=== PATIENT | female | born 1940 | race Caucasian/White ===

== ENCOUNTER 2018-10-20 03:45 | Inpatient (IN) ==
[2018-10-20] MEDS ORDERED: SODIUM CHLORIDE 0.9% 500 ML IV STA (04:09)
[2018-10-20] MEDS ORDERED: ONDANSETRON 4 MG/2 ML VIAL IV STA (04:09)
[2018-10-20] MEDS ORDERED: PANTOPRAZOLE 40 MG VIAL IV STA (04:09)
[2018-10-20] MEDS ORDERED: HYDROmorphone 2 MG/1 ML VIAL IV STA (04:09)
[2018-10-20 05:34] LABS: Eosinophils % 5.9 % (0.00-10.9); Hematocrit 28.4 VOL% (35.7-47.0); Hemoglobin 9.5 GM/DL (12.0-16.0); Lymphocytes # 0.1 10*3/uL (1.4-4.0); Lymphocytes % 76.5 % (21.3-54.2); Mean Corpuscular HGB Conc 33.5 GM/DL (32-36); Mean Corpuscular Hemoglobin 32 PG (27-34); Mean Corpuscular Volume 96.9 FL (87-102); Mean Platelet Volume 10.7 FL (9.6-12.0); Monocytes % 11.8 % (1.7-12.7); Neutrophils % 5.8 % (38.7-73.9); Red Blood Count 2.93 MC/CUMM (3.8-5.5); Red Cell Distribution Width 15.9 % (9.3-17.3)
[2018-10-20 05:40] LABS: White Blood Count 0.2 T/CUMM (4-12)
[2018-10-20 05:41] LABS: Platelet Count 30 T/CUMM (130-400)
[2018-10-20 05:58] LABS: Albumin 2.3 G/DL (3.4-5.0); Bilirubin,Total 2.1 MG/DL (0.2-1.0); Osmolality,Calculated 277.8 MOS/KG (273-304); Potassium 4.4 MMOL/L (3.5-5.1); Total Protein 5.2 G/DL (6.4-8.3)
[2018-10-20 06:01] LABS: Atypical Lymphocytes Few; Eosinophils 10 % (0-10); Hypochromasia 1+; Lymphocytes 60 % (20-55); Segmented Neutrophils 20 % (50-85); Total Cells Counted 100
[2018-10-20 06:02] LABS: Microcytosis 1+; Ovalocytes Slight; Platelet Estimate Decreased
[2018-10-20 06:27] LABS: Apearance,Urine CLOUDY (Clear); Bilirubin,Urine Negative (Negative); Blood, Urine Negative (Negative); Glucose,Urine (UA) Negative (Negative); Hyaline Casts,Urine 13 /LPF (0-3); Ketones,Urine Negative (Negative); Mucus,Urine Many /LPF (Occasional); Nitrite,Urine Negative (Negative); Protein,Urine Negative; Squamous Epithelial Cell,Urine Occasional /HPF (0-10); Urine Color Amber (Yellow); Urine Specific Gravity 1.021 (1.001-1.035); Urine Urobilinogen < 2.0 EU/DL (0.2-1.0); WBC,Urine 1 /HPF (0-6)
[2018-10-20] MEDS ORDERED: SODIUM CHLORIDE 0.9% 1,000 ML IV PRN (08:07)
[2018-10-20] MEDS ORDERED: chlorproMAZINE INJ 50 MG in SODIUM CHLORIDE 0.9% 100 ML IV PRN (10:34)
[2018-10-20] MEDS ORDERED: ACETAMINOPHEN 325 MG TABLET PO PRN (10:34)
[2018-10-20] MEDS ORDERED: ONDANSETRON 4 MG/2 ML VIAL IV PRN (10:34)
[2018-10-20] MEDS ORDERED: chlorproMAZINE INJ 25 MG in SODIUM CHLORIDE 0.9% 100 ML IV PRN (10:34)
[2018-10-20] MEDS ORDERED: diphenhydrAMINE CAP 25 MG CAPSULE PO PRN (10:34)
[2018-10-20] MEDS ORDERED: PROMETHAZINE INJ 25 MG in SODIUM CHLORIDE 0.9% 50 ML IV PRN (10:34)
[2018-10-20] MEDS ORDERED: LACTULOSE 20 GM/30 ML UDCUP PO PRN (10:34)
[2018-10-20] MEDS ORDERED: chlorproMAZINE 25 MG TABLET PO PRN (10:34)
[2018-10-20] MEDS ORDERED: guaiFENesin 200 MG/10 ML UDCUP PO PRN (10:34)
[2018-10-20] MEDS ORDERED: MAGNESIUM HYDROXIDE SUSP 30 ML UDCUP PO PRN (10:34)
[2018-10-20] MEDS ORDERED: LOPERAMIDE 2 MG CAPSULE PO PRN ×2 (10:34)
[2018-10-20] MEDS ORDERED: ALUMINUM/MAGNES/SIMETH MAX STR 30 ML UDCUP PO PRN (10:34)
[2018-10-20] MEDS ORDERED: BENZTROPINE 2 MG/2 ML AMP IV PRN (10:34)
[2018-10-20] MEDS ORDERED: MYLANTA/LIDO VISC 2:1 300 ML BOTTLE SWISH/SWAL PRN (10:34)
[2018-10-20] MEDS ORDERED: ALPRAZolam 0.25 MG TABLET PO PRN (10:34)
[2018-10-20] MEDS ORDERED: MYLANTA/LIDO VISC 2:1 300 ML BOTTLE SWISH/SPIT PRN (10:34)
[2018-10-20] MEDS: FILGRASTIM-SNDZ 300 MCG/0.5 ML SYRINGE SUBCUT SCH (15:10)
[2018-10-21] MEDS: PANTOPRAZOLE 40 MG VIAL IV SCH ×3 (01:47→20:49)
[2018-10-21 05:33] LABS: Eosinophils % 4.5 % (0.00-10.9); Hematocrit 25.7 VOL% (35.7-47.0); Hemoglobin 8.4 GM/DL (12.0-16.0); Lymphocytes # 0.1 10*3/uL (1.4-4.0); Lymphocytes % 59.1 % (21.3-54.2); Mean Corpuscular HGB Conc 32.7 GM/DL (32-36); Mean Corpuscular Hemoglobin 31 PG (27-34); Mean Corpuscular Volume 95.5 FL (87-102); Mean Platelet Volume 10.7 FL (9.6-12.0); Monocytes # 0.1 10*3/uL (0.11-0.8); Monocytes % 22.7 % (1.7-12.7); Neutrophils % 13.7 % (38.7-73.9); Red Blood Count 2.69 MC/CUMM (3.8-5.5); Red Cell Distribution Width 15.9 % (9.3-17.3)
[2018-10-21 05:43] LABS: Albumin 2.3 G/DL (3.4-5.0); Bilirubin,Total 1.8 MG/DL (0.2-1.0); Calcium 7.9 MG/DL (8.5-10.1); Osmolality,Calculated 276.8 MOS/KG (273-304); Potassium 4.3 MMOL/L (3.5-5.1); Total Protein 5.3 G/DL (6.4-8.3)
[2018-10-21 05:46] LABS: White Blood Count 0.2 T/CUMM (4-12)
[2018-10-21 05:47] LABS: Platelet Count 30 T/CUMM (130-400)
[2018-10-21 07:11] LABS: Lymphocytes 80 % (20-55); Segmented Neutrophils 10 % (50-85); Total Cells Counted 100
[2018-10-21 07:12] LABS: Anisocytosis Slight; Microcytosis Slight; Platelet Estimate Decreased
[2018-10-21] MEDS ORDERED: SODIUM CHLORIDE 0.9% 1,000 ML IV PRN (07:14)
[2018-10-21] MEDS: FILGRASTIM-SNDZ 300 MCG/0.5 ML SYRINGE SUBCUT SCH (08:46)
[2018-10-21] MEDS: MAGNESIUM CHLORIDE 64 MG TABLET PO SCH ×2 (08:47→20:50)
[2018-10-21] MEDS: MONTELUKAST 10 MG TABLET PO SCH (08:47)
[2018-10-21] MEDS: CHOLECALCIFEROL 1,000 UNIT TABLET PO SCH (08:47)
[2018-10-21] MEDS: URSODIOL 300 MG CAPSULE PO SCH ×2 (08:47→20:50)
[2018-10-21] MEDS: CALCIUM (CARBONATE)/VITAMIN D 600 MG-400 UNIT TABLET PO SCH (08:48)
[2018-10-21] MEDS: THYROID 60 MG TABLET PO SCH (08:48)
[2018-10-21] MEDS: amLODIPine 5 MG TABLET PO SCH (08:48)
[2018-10-21] MEDS: CARVEDILOL 6.25 MG TABLET PO SCH ×2 (08:49→20:50)
[2018-10-21 09:08] LABS: INR 1.2; PT Patient Result 13.4 SECS; Partial Thromboplastin Time 27.7 SECS (0-40)
[2018-10-22 04:42] LABS: Hematocrit 25.3 VOL% (35.7-47.0); Hemoglobin 8.4 GM/DL (12.0-16.0); Immature Granulocytes % 3.2 %; Immature Granulocytes Absolute 0.01 #; Lymphocytes # 0.1 10*3/uL (1.4-4.0); Mean Corpuscular HGB Conc 33.2 GM/DL (32-36); Mean Corpuscular Hemoglobin 32 PG (27-34); Mean Corpuscular Volume 95.5 FL (87-102); Mean Platelet Volume 10.8 FL (9.6-12.0); Monocytes # 0.1 10*3/uL (0.11-0.8); Monocytes % 32.3 % (1.7-12.7); Neutrophils # 0.1 10*3/uL (1.4-7.4); Neutrophils % 35.5 % (38.7-73.9); Red Blood Count 2.65 MC/CUMM (3.8-5.5); Red Cell Distribution Width 15.3 % (9.3-17.3)
[2018-10-22 04:49] LABS: Platelet Count 32 T/CUMM (130-400); White Blood Count 0.3 T/CUMM (4-12)
[2018-10-22 05:09] LABS: Albumin 2.4 G/DL (3.4-5.0); Bilirubin,Total 2.6 MG/DL (0.2-1.0); Calcium 7.7 MG/DL (8.5-10.1); Osmolality,Calculated 278.7 MOS/KG (273-304); Potassium 3.9 MMOL/L (3.5-5.1); Total Protein 5.2 G/DL (6.4-8.3)
[2018-10-22 05:33] LABS: Band Neutrophils 42 % (0-10); Hypochromasia Slight; Lymphocytes 17 % (20-55); Metamyelocytes 8 %; Platelet Estimate Decreased; Segmented Neutrophils 8 % (50-85); Total Cells Counted 100
[2018-10-22] MEDS ORDERED: POTASSIUM CHLORIDE RIDER 10 MEQ in PREMIX 1 EACH IV PRN (07:13)
[2018-10-22] MEDS ORDERED: MAGNESIUM SULF RIDER 2 GM in PREMIX 1 EACH IV PRN (07:13)
[2018-10-22] MEDS ORDERED: MAGNESIUM SULF RIDER 4 GM in PREMIX 1 EACH IV PRN (07:13)
[2018-10-22] MEDS ORDERED: SODIUM PHOSPHATE INJ 30 MMOL in SODIUM CHLORIDE 0.9% 250 ML IV ONE (08:00)
[2018-10-22] MEDS ORDERED: SODIUM CHLORIDE 0.9% 1,000 ML IV PRN (08:13)
[2018-10-22] MEDS ORDERED: PHENYLEPHRINE 1 MG/10 ML SYRINGE IV ONE (08:49)
[2018-10-22] MEDS ORDERED: LIDOCAINE 2% 5 ML VIAL ONE (08:49)
[2018-10-22] MEDS ORDERED: PROPOFOL 200 MG/20 ML VIAL IV ONE (08:49)
[2018-10-22] MEDS: MAGNESIUM CHLORIDE 64 MG TABLET PO SCH ×2 (09:09→20:59)
[2018-10-22] MEDS: THYROID 60 MG TABLET PO SCH (09:09)
[2018-10-22] MEDS: MONTELUKAST 10 MG TABLET PO SCH (09:09)
[2018-10-22] MEDS: CALCIUM (CARBONATE)/VITAMIN D 600 MG-400 UNIT TABLET PO SCH (09:09)
[2018-10-22] MEDS: CHOLECALCIFEROL 1,000 UNIT TABLET PO SCH (09:09)
[2018-10-22] MEDS: amLODIPine 5 MG TABLET PO SCH (09:09)
[2018-10-22] MEDS: CARVEDILOL 6.25 MG TABLET PO SCH ×2 (09:09→20:59)
[2018-10-22] MEDS: URSODIOL 300 MG CAPSULE PO SCH ×2 (09:09→20:59)
[2018-10-22] MEDS: FILGRASTIM-SNDZ 300 MCG/0.5 ML SYRINGE SUBCUT SCH (10:18)
[2018-10-22] MEDS: PANTOPRAZOLE 40 MG VIAL IV SCH ×2 (10:19→20:59)
[2018-10-23 05:51] LABS: Basophils % 1.8 % (0.0-0.8); Eosinophils % 0.9 % (0.00-10.9); Hematocrit 31.2 VOL% (35.7-47.0); Hemoglobin 10.5 GM/DL (12.0-16.0); Immature Granulocytes Absolute 0.09 #; Lymphocytes # 0.1 10*3/uL (1.4-4.0); Lymphocytes % 12.4 % (21.3-54.2); Mean Corpuscular HGB Conc 33.7 GM/DL (32-36); Mean Corpuscular Hemoglobin 32 PG (27-34); Mean Corpuscular Volume 94.8 FL (87-102); Mean Platelet Volume 11.1 FL (9.6-12.0); Monocytes # 0.3 10*3/uL (0.11-0.8); Neutrophils # 0.6 10*3/uL (1.4-7.4); Neutrophils % 53.9 % (38.7-73.9); Red Blood Count 3.29 MC/CUMM (3.8-5.5); Red Cell Distribution Width 15.4 % (9.3-17.3); White Blood Count 1.1 T/CUMM (4-12)
[2018-10-23 05:56] LABS: Platelet Count 29 T/CUMM (130-400)
[2018-10-23 06:15] LABS: Albumin 2.3 G/DL (3.4-5.0); Bilirubin,Total 2.6 MG/DL (0.2-1.0); Osmolality,Calculated 279.5 MOS/KG (273-304); Potassium 4.1 MMOL/L (3.5-5.1); Total Protein 4.9 G/DL (6.4-8.3)
[2018-10-23 06:18] LABS: Band Neutrophils 5 % (0-10); Eosinophils 1 % (0-10); Hypochromasia 1+; Lymphocytes 19 % (20-55); Ovalocytes Slight; Platelet Estimate Decreased; Segmented Neutrophils 43 % (50-85); Total Cells Counted 100
[2018-10-23 06:19] LABS: Microcytosis Slight
[2018-10-23] MEDS ORDERED: SODIUM CHLORIDE 0.9% 1,000 ML IV PRN (08:25)
[2018-10-23] MEDS: CARVEDILOL 6.25 MG TABLET PO SCH ×2 (08:37→20:21)
[2018-10-23] MEDS: MONTELUKAST 10 MG TABLET PO SCH (08:37)
[2018-10-23] MEDS: THYROID 60 MG TABLET PO SCH (08:37)
[2018-10-23] MEDS: URSODIOL 300 MG CAPSULE PO SCH ×2 (08:38→20:21)
[2018-10-23] MEDS: CALCIUM (CARBONATE)/VITAMIN D 600 MG-400 UNIT TABLET PO SCH (08:38)
[2018-10-23] MEDS: CHOLECALCIFEROL 1,000 UNIT TABLET PO SCH (08:38)
[2018-10-23] MEDS: amLODIPine 5 MG TABLET PO SCH (08:38)
[2018-10-23] MEDS: FILGRASTIM-SNDZ 300 MCG/0.5 ML SYRINGE SUBCUT SCH (08:39)
[2018-10-23] MEDS: MAGNESIUM CHLORIDE 64 MG TABLET PO SCH ×2 (08:39→20:21)
[2018-10-23] MEDS: PANTOPRAZOLE 40 MG VIAL IV SCH ×2 (11:46→20:21)
[2018-10-23] MEDS: TEMAZEPAM 7.5 MG CAPSULE PO PRN (20:24)
[2018-10-24 05:42] LABS: Basophils # 0.1 10*3/uL (0.0-0.2); Basophils % 1.8 % (0.0-0.8); Hematocrit 34.4 VOL% (35.7-47.0); Hemoglobin 11.1 GM/DL (12.0-16.0); Immature Granulocytes % 11.1 %; Lymphocytes # 0.4 10*3/uL (1.4-4.0); Lymphocytes % 15.1 % (21.3-54.2); Mean Corpuscular HGB Conc 32.3 GM/DL (32-36); Mean Corpuscular Hemoglobin 32 PG (27-34); Mean Platelet Volume 11.5 FL (9.6-12.0); Monocytes # 0.4 10*3/uL (0.11-0.8); Monocytes % 13.7 % (1.7-12.7); Neutrophils # 1.6 10*3/uL (1.4-7.4); Neutrophils % 58.3 % (38.7-73.9); Red Blood Count 3.51 MC/CUMM (3.8-5.5); Red Cell Distribution Width 15.5 % (9.3-17.3); White Blood Count 2.7 T/CUMM (4-12)
[2018-10-24 05:45] LABS: Platelet Count 44 T/CUMM (130-400)
[2018-10-24 06:14] LABS: Albumin 2.2 G/DL (3.4-5.0); Bilirubin,Total 1.3 MG/DL (0.2-1.0); Calcium 8.2 MG/DL (8.5-10.1); Osmolality,Calculated 284.1 MOS/KG (273-304); Potassium 3.5 MMOL/L (3.5-5.1); Total Protein 4.8 G/DL (6.4-8.3)
[2018-10-24 06:25] LABS: Band Neutrophils 7 % (0-10); Lymphocytes 15 % (20-55); Metamyelocytes 4 %; Myelocytes 1 %; Promyelocytes 1 %; Segmented Neutrophils 51 % (50-85)
[2018-10-24 06:26] LABS: Atypical Lymphocytes Few
[2018-10-24 06:27] LABS: Platelet Estimate Decreased
[2018-10-24 06:28] LABS: Total Cells Counted 100
[2018-10-24] MEDS: URSODIOL 300 MG CAPSULE PO SCH ×2 (08:42→20:28)
[2018-10-24] MEDS: THYROID 60 MG TABLET PO SCH (08:42)
[2018-10-24] MEDS: MONTELUKAST 10 MG TABLET PO SCH (08:42)
[2018-10-24] MEDS: CHOLECALCIFEROL 1,000 UNIT TABLET PO SCH (08:43)
[2018-10-24] MEDS: CALCIUM (CARBONATE)/VITAMIN D 600 MG-400 UNIT TABLET PO SCH (08:43)
[2018-10-24] MEDS: PANTOPRAZOLE 40 MG VIAL IV SCH ×2 (08:43→20:29)
[2018-10-24] MEDS: FILGRASTIM-SNDZ 300 MCG/0.5 ML SYRINGE SUBCUT SCH (08:44)
[2018-10-24] MEDS: MAGNESIUM CHLORIDE 64 MG TABLET PO SCH ×2 (08:47→20:28)
[2018-10-24] MEDS: amLODIPine 5 MG TABLET PO SCH (10:27)
[2018-10-24] MEDS: CARVEDILOL 6.25 MG TABLET PO SCH ×2 (10:27→20:28)
[2018-10-24] MEDS: TEMAZEPAM 7.5 MG CAPSULE PO PRN (20:28)
[2018-10-24] MEDS: traMADol 50 MG TABLET PO PRN (20:33)
[2018-10-25 05:26] LABS: Basophils % 0.2 % (0.0-0.8); Eosinophils % 0.2 % (0.00-10.9); Hematocrit 34.9 VOL% (35.7-47.0); Hemoglobin 11.5 GM/DL (12.0-16.0); Immature Granulocytes % 16.1 %; Immature Granulocytes Absolute 0.93 #; Lymphocytes # 0.4 10*3/uL (1.4-4.0); Lymphocytes % 6.6 % (21.3-54.2); Mean Corpuscular Hemoglobin 32 PG (27-34); Mean Corpuscular Volume 95.9 FL (87-102); Mean Platelet Volume 11.9 FL (9.6-12.0); Monocytes # 0.8 10*3/uL (0.11-0.8); Monocytes % 13.8 % (1.7-12.7); NRBC # 0.03 10*3/uL; Neutrophils # 3.7 10*3/uL (1.4-7.4); Neutrophils % 63.1 % (38.7-73.9); Platelet Count 47 T/CUMM (130-400); Red Blood Count 3.64 MC/CUMM (3.8-5.5); Red Cell Distribution Width 15.5 % (9.3-17.3); White Blood Count 5.8 T/CUMM (4-12)
[2018-10-25 05:40] LABS: Albumin 2.2 G/DL (3.4-5.0); Bilirubin,Total 1.2 MG/DL (0.2-1.0); Calcium 8.2 MG/DL (8.5-10.1); Osmolality,Calculated 284.1 MOS/KG (273-304); Potassium 3.6 MMOL/L (3.5-5.1); Total Protein 4.7 G/DL (6.4-8.3)
[2018-10-25 06:06] LABS: Band Neutrophils 8 % (0-10); Lymphocytes 7 % (20-55); Metamyelocytes 1 %; Myelocytes 2 %; Segmented Neutrophils 63 % (50-85)
[2018-10-25 06:07] LABS: Hypochromasia Slight; Platelet Estimate Decreased; Total Cells Counted 100
[2018-10-25] MEDS ORDERED: SPIRONOLACTONE 25 MG TABLET PO SCH (09:00)
[2018-10-25] MEDS: CALCIUM (CARBONATE)/VITAMIN D 600 MG-400 UNIT TABLET PO SCH (10:38)
[2018-10-25] MEDS: MONTELUKAST 10 MG TABLET PO SCH (10:38)
[2018-10-25] MEDS: THYROID 60 MG TABLET PO SCH (10:39)
[2018-10-25] MEDS: CHOLECALCIFEROL 1,000 UNIT TABLET PO SCH (10:39)
[2018-10-25] MEDS: PANTOPRAZOLE 40 MG VIAL IV SCH ×2 (10:40→20:38)
[2018-10-25] MEDS: URSODIOL 300 MG CAPSULE PO SCH ×2 (10:40→20:38)
[2018-10-25] MEDS: MAGNESIUM CHLORIDE 64 MG TABLET PO SCH ×2 (10:40→20:38)
[2018-10-25] MEDS: FILGRASTIM-SNDZ 300 MCG/0.5 ML SYRINGE SUBCUT SCH (10:43)
[2018-10-25] MEDS: amLODIPine 5 MG TABLET PO SCH (10:45)
[2018-10-25] MEDS: CARVEDILOL 6.25 MG TABLET PO SCH (10:45)
[2018-10-25] MEDS: FUROSEMIDE 40 MG TABLET PO SCH (16:36)
[2018-10-25] MEDS: traMADol 50 MG TABLET PO PRN (20:37)
[2018-10-25] MEDS: SPIRONOLACTONE 50 MG TABLET PO SCH (20:38)
[2018-10-26 05:27] LABS: Basophils % 0.1 % (0.0-0.8); Hematocrit 37.9 VOL% (35.7-47.0); Hemoglobin 12.1 GM/DL (12.0-16.0); Immature Granulocytes % 13.2 %; Immature Granulocytes Absolute 1.62 #; Lymphocytes # 0.5 10*3/uL (1.4-4.0); Lymphocytes % 4.3 % (21.3-54.2); Mean Corpuscular HGB Conc 31.9 GM/DL (32-36); Mean Corpuscular Hemoglobin 31 PG (27-34); Mean Corpuscular Volume 97.2 FL (87-102); Mean Platelet Volume 11.4 FL (9.6-12.0); Monocytes # 1.5 10*3/uL (0.11-0.8); NRBC # 0.02 10*3/uL; Neutrophils # 8.6 10*3/uL (1.4-7.4); Neutrophils % 70.4 % (38.7-73.9); Red Cell Distribution Width 15.9 % (9.3-17.3); White Blood Count 12.2 T/CUMM (4-12)
[2018-10-26 05:28] LABS: Platelet Count 61 T/CUMM (130-400)
[2018-10-26 05:44] LABS: Albumin 2.2 G/DL (3.4-5.0); Bilirubin,Total 1.2 MG/DL (0.2-1.0); Calcium 8.5 MG/DL (8.5-10.1); Osmolality,Calculated 282.3 MOS/KG (273-304); Potassium 3.4 MMOL/L (3.5-5.1)
[2018-10-26 06:26] LABS: Band Neutrophils 3 % (0-10); Lymphocytes 6 % (20-55); Metamyelocytes 2 %; Segmented Neutrophils 81 % (50-85); Total Cells Counted 100
[2018-10-26 06:27] LABS: Platelet Estimate Decreased
[2018-10-26 09:45] LABS: Neutrophils,Peritoneal Fluid 57 %
[2018-10-26 09:46] LABS: RBC,Peritoneal Fluid 84 T/CUMM
[2018-10-26] MEDS: CALCIUM (CARBONATE)/VITAMIN D 600 MG-400 UNIT TABLET PO SCH (10:22)
[2018-10-26] MEDS: URSODIOL 300 MG CAPSULE PO SCH ×2 (10:22→20:37)
[2018-10-26] MEDS: THYROID 60 MG TABLET PO SCH (10:22)
[2018-10-26] MEDS: SPIRONOLACTONE 50 MG TABLET PO SCH ×2 (10:22→20:37)
[2018-10-26] MEDS: amLODIPine 5 MG TABLET PO SCH (10:23)
[2018-10-26] MEDS: FUROSEMIDE 40 MG TABLET PO SCH ×2 (10:23→17:06)
[2018-10-26] MEDS: CHOLECALCIFEROL 1,000 UNIT TABLET PO SCH (10:23)
[2018-10-26] MEDS: MONTELUKAST 10 MG TABLET PO SCH (10:23)
[2018-10-26] MEDS: MAGNESIUM CHLORIDE 64 MG TABLET PO SCH ×2 (10:23→20:37)
[2018-10-26] MEDS: POTASSIUM CHLORIDE 20 MEQ TABLET PO SCH ×2 (10:24→20:37)
[2018-10-26] MEDS: PANTOPRAZOLE 40 MG VIAL IV SCH ×2 (10:26→20:37)
[2018-10-26] MEDS: traMADol 50 MG TABLET PO PRN (20:37)
[2018-10-27 04:49] LABS: Basophils % 0.1 % (0.0-0.8); Hematocrit 38.4 VOL% (35.7-47.0); Hemoglobin 12.4 GM/DL (12.0-16.0); Immature Granulocytes % 15.2 %; Lymphocytes # 0.5 10*3/uL (1.4-4.0); Lymphocytes % 5.5 % (21.3-54.2); Mean Corpuscular HGB Conc 32.3 GM/DL (32-36); Mean Corpuscular Hemoglobin 31 PG (27-34); Mean Corpuscular Volume 96.2 FL (87-102); Mean Platelet Volume 11.4 FL (9.6-12.0); Monocytes # 1.6 10*3/uL (0.11-0.8); Monocytes % 15.8 % (1.7-12.7); Neutrophils # 6.2 10*3/uL (1.4-7.4); Neutrophils % 63.4 % (38.7-73.9); Red Blood Count 3.99 MC/CUMM (3.8-5.5); Red Cell Distribution Width 15.8 % (9.3-17.3); White Blood Count 9.8 T/CUMM (4-12)
[2018-10-27 05:00] LABS: Platelet Count 57 T/CUMM (130-400)
[2018-10-27 05:08] LABS: Albumin 2.2 G/DL (3.4-5.0); Bilirubin,Total 1.2 MG/DL (0.2-1.0); Calcium 8.1 MG/DL (8.5-10.1); Osmolality,Calculated 281.3 MOS/KG (273-304); Potassium 3.3 MMOL/L (3.5-5.1); Total Protein 4.9 G/DL (6.4-8.3)
[2018-10-27 06:05] LABS: Band Neutrophils 4 % (0-10); Lymphocytes 11 % (20-55); Metamyelocytes 1 %; Platelet Estimate Decreased; Segmented Neutrophils 67 % (50-85)
[2018-10-27 06:06] LABS: Total Cells Counted 100
[2018-10-27 08:13] VITALS: BP 125/74
[2018-10-27] MEDS: CHOLECALCIFEROL 1,000 UNIT TABLET PO SCH (08:35)
[2018-10-27] MEDS: MONTELUKAST 10 MG TABLET PO SCH (08:36)
[2018-10-27] MEDS: MAGNESIUM CHLORIDE 64 MG TABLET PO SCH (08:36)
[2018-10-27] MEDS: THYROID 60 MG TABLET PO SCH (08:36)
[2018-10-27] MEDS: PANTOPRAZOLE 40 MG VIAL IV SCH (08:37)
[2018-10-27] MEDS: CALCIUM (CARBONATE)/VITAMIN D 600 MG-400 UNIT TABLET PO SCH (08:37)
[2018-10-27] MEDS: amLODIPine 5 MG TABLET PO SCH (08:37)
[2018-10-27] MEDS: SPIRONOLACTONE 50 MG TABLET PO SCH (08:37)
[2018-10-27] MEDS: POTASSIUM CHLORIDE 20 MEQ TABLET PO SCH (08:37)
[2018-10-27] MEDS: POTASSIUM CHLORIDE RIDER 10 MEQ in PREMIX 1 EACH IV SCH ×2 (08:40→10:45)
[2018-10-27] MEDS ORDERED: FUROSEMIDE 40 MG TABLET PO SCH (09:00)
[2018-10-27] MEDS ORDERED: POTASSIUM CHLORIDE 20 MEQ TABLET PO ONE (09:10)
[2018-10-27] MEDS: URSODIOL 300 MG CAPSULE PO SCH (09:50)
== END 2018-10-27 11:10 | disposition home or self-care (01) | DRG 808 ==
LOC: N.EDINP 03:45 → N.ED 03:45 → SUATTDRO 06:29 → SUPCPDRO 06:29 → N.4E 07:49 → SUATTDRO 10-21 09:40
PROVIDERS: ADMIT Family Medicine; ATTEND Internal Medicine Geriatric Medicine

== ENCOUNTER 2019-01-26 12:13 | Inpatient (IN) ==
[2019-01-26] MEDS ORDERED: SODIUM CHLORIDE 0.9% 1,000 ML IV STA (12:43)
[2019-01-26] MEDS ORDERED: ONDANSETRON 4 MG/2 ML VIAL IV STA (12:43)
[2019-01-26] MEDS ORDERED: HYDROmorphone 2 MG/1 ML VIAL IV STA (12:43)
[2019-01-26 13:23] LABS: Basophils % 0.8 % (0.0-0.8); Eosinophils % 1.5 % (0.00-10.9); Hematocrit 23.1 VOL% (35.7-47.0); Hemoglobin 7.6 GM/DL (12.0-16.0); Immature Granulocytes % 3.8 %; Immature Granulocytes Absolute 0.05 #; Lymphocytes # 0.2 10*3/uL (1.4-4.0); Lymphocytes % 16.9 % (21.3-54.2); Mean Corpuscular HGB Conc 32.9 GM/DL (32-36); Mean Corpuscular Volume 106.9 FL (87-102); Mean Platelet Volume 13.1 FL (9.6-12.0); Monocytes % 26.2 % (1.7-12.7); Neutrophils % 50.8 % (38.7-73.9); Red Blood Count 2.16 MC/CUMM (3.8-5.5); Red Cell Distribution Width 14.5 % (9.3-17.3); White Blood Count 1.3 T/CUMM (4-12)
[2019-01-26 13:27] LABS: Platelet Count 20 T/CUMM (130-400)
[2019-01-26 13:51] LABS: Albumin 2.8 G/DL (3.4-5.0); Bilirubin,Total 1.3 MG/DL (0.2-1.0); Calcium 8.6 MG/DL (8.5-10.1); Total Protein 5.6 G/DL (6.4-8.3)
[2019-01-26] MEDS ORDERED: SODIUM CHLORIDE 0.9% 1,000 ML IV PRN (14:40)
[2019-01-26 15:23] LABS: Band Neutrophils 4 % (0-10); Eosinophils 2 % (0-10); Lymphocytes 28 % (20-55); Nucleated Red Blood Cells 1 (0-5); Platelet Estimate Decreased; Segmented Neutrophils 54 % (50-85)
[2019-01-26 15:24] LABS: Anisocytosis Slight; Total Cells Counted 100
[2019-01-26 15:25] LABS: Hypochromasia Slight; Macrocytosis 1+; Polychromasia Few; Toxic Granulation 1+
[2019-01-26] MEDS ORDERED: ONDANSETRON 4 MG/2 ML VIAL IV PRN (15:28)
[2019-01-26] MEDS ORDERED: ACETAMINOPHEN 325 MG TABLET PO PRN (15:28)
[2019-01-26 16:17] LABS: Thyroid Stimulating Hormone 1.58 uIU/ml (0.358-3.74)
[2019-01-27 05:04] LABS: Basophils % 1.4 % (0.0-0.8); Eosinophils % 1.4 % (0.00-10.9); Hematocrit 28.1 VOL% (35.7-47.0); Hemoglobin 9.5 GM/DL (12.0-16.0); Immature Granulocytes % 2.9 %; Immature Granulocytes Absolute 0.02 #; Lymphocytes # 0.2 10*3/uL (1.4-4.0); Lymphocytes % 22.9 % (21.3-54.2); Mean Corpuscular HGB Conc 33.8 GM/DL (32-36); Mean Corpuscular Volume 101.4 FL (87-102); Mean Platelet Volume 11.5 FL (9.6-12.0); Neutrophils % 41.4 % (38.7-73.9); Red Blood Count 2.77 MC/CUMM (3.8-5.5); Red Cell Distribution Width 16.9 % (9.3-17.3)
[2019-01-27 05:09] LABS: White Blood Count 0.7 T/CUMM (4-12)
[2019-01-27 05:10] LABS: Platelet Count 18 T/CUMM (130-400)
[2019-01-27 05:32] LABS: Albumin 2.5 G/DL (3.4-5.0); Bilirubin,Total 1.4 MG/DL (0.2-1.0); Calcium 8.2 MG/DL (8.5-10.1); Osmolality,Calculated 272.8 MOS/KG (273-304)
[2019-01-27 06:38] LABS: Anisocytosis 1+; Band Neutrophils 4 % (0-10); Lymphocytes 23 % (20-55); Macrocytosis Slight; Metamyelocytes 1 %; Myelocytes 2 %; Segmented Neutrophils 53 % (50-85); Total Cells Counted 100
[2019-01-27 06:40] LABS: Platelet Estimate Decreased
[2019-01-27] MEDS: PANTOPRAZOLE 40 MG TABLET PO SCH (09:40)
[2019-01-27] MEDS: MAGNESIUM CHLORIDE 64 MG TABLET PO SCH (09:40)
[2019-01-27] MEDS: URSODIOL 300 MG CAPSULE PO SCH ×2 (09:40→20:47)
[2019-01-27] MEDS: CHOLECALCIFEROL 1,000 UNIT TABLET PO SCH (09:40)
[2019-01-27] MEDS: FILGRASTIM-SNDZ 300 MCG/0.5 ML SYRINGE SUBCUT SCH (09:41)
[2019-01-27] MEDS: CARVEDILOL 6.25 MG TABLET PO SCH (09:42)
[2019-01-27] MEDS: SPIRONOLACTONE 50 MG TABLET PO SCH (09:42)
[2019-01-27] MEDS: FUROSEMIDE 20 MG TABLET PO SCH (09:42)
[2019-01-27] MEDS: amLODIPine 5 MG TABLET PO SCH (09:42)
[2019-01-27] MEDS ORDERED: SODIUM CHLORIDE 0.9% 1,000 ML IV PRN ×3 (10:32→15:10)
[2019-01-27] MEDS ORDERED: MAGNESIUM SULF RIDER 4 GM in PREMIX 1 EACH IV PRN (13:17)
[2019-01-27] MEDS ORDERED: POTASSIUM CHLORIDE 20 MEQ TABLET PO PRN (13:17)
[2019-01-27] MEDS: MAGNESIUM SULF RIDER 2 GM in PREMIX 1 EACH IV PRN ×2 (16:13→18:11)
[2019-01-27] MEDS ORDERED: BACLOFEN 10 MG TABLET PO PRN (16:36)
[2019-01-27] MEDS ORDERED: URSODIOL 300 MG CAPSULE PO SCH (21:00)
[2019-01-28 04:43] LABS: Basophils % 1.1 % (0.0-0.8); Eosinophils % 0.4 % (0.00-10.9); Hematocrit 29.2 VOL% (35.7-47.0); Hemoglobin 9.8 GM/DL (12.0-16.0); Immature Granulocytes Absolute 0.24 #; Lymphocytes # 0.2 10*3/uL (1.4-4.0); Lymphocytes % 8.2 % (21.3-54.2); Mean Corpuscular HGB Conc 33.6 GM/DL (32-36); Mean Platelet Volume 11.9 FL (9.6-12.0); Monocytes % 20.2 % (1.7-12.7); Neutrophils % 61.1 % (38.7-73.9); Red Blood Count 2.92 MC/CUMM (3.8-5.5); Red Cell Distribution Width 16.6 % (9.3-17.3); White Blood Count 2.7 T/CUMM (4-12)
[2019-01-28 04:50] LABS: Albumin 2.8 G/DL (3.4-5.0); Bilirubin,Total 1.9 MG/DL (0.2-1.0); Calcium 8.3 MG/DL (8.5-10.1); Osmolality,Calculated 272.8 MOS/KG (273-304); Platelet Count 28 T/CUMM (130-400); Total Protein 5.3 G/DL (6.4-8.3)
[2019-01-28 05:13] LABS: Anisocytosis 2+; Band Neutrophils 13 % (0-10); Hypochromasia 1+; Lymphocytes 6 % (20-55); Macrocytosis 2+; Metamyelocytes 3 %; Myelocytes 1 %; Nucleated Red Blood Cells 1 (0-5); Platelet Estimate Decreased; Segmented Neutrophils 62 % (50-85); Total Cells Counted 100
[2019-01-28] MEDS: THYROID 60 MG TABLET PO SCH (06:06)
[2019-01-28] MEDS ORDERED: ACETAMINOPHEN 325 MG TABLET PO PRN (08:21)
[2019-01-28] MEDS ORDERED: THYROID 60 MG TABLET PO SCH (09:00)
[2019-01-28] MEDS ORDERED: SPIRONOLACTONE 50 MG TABLET PO SCH (09:00)
[2019-01-28] MEDS: CHOLECALCIFEROL 1,000 UNIT TABLET PO SCH (09:38)
[2019-01-28] MEDS: MAGNESIUM CHLORIDE 64 MG TABLET PO SCH (09:38)
[2019-01-28] MEDS: FILGRASTIM-SNDZ 300 MCG/0.5 ML SYRINGE SUBCUT SCH (09:38)
[2019-01-28] MEDS: URSODIOL 300 MG CAPSULE PO SCH ×2 (09:39→20:45)
[2019-01-28] MEDS: MONTELUKAST 10 MG TABLET PO SCH (09:39)
[2019-01-28] MEDS: PANTOPRAZOLE 40 MG TABLET PO SCH (09:40)
[2019-01-28] MEDS: FUROSEMIDE 20 MG TABLET PO SCH (09:40)
[2019-01-28] MEDS: SPIRONOLACTONE 50 MG TABLET PO SCH (09:40)
[2019-01-28] MEDS: amLODIPine 5 MG TABLET PO SCH (09:40)
[2019-01-28] MEDS: CARVEDILOL 6.25 MG TABLET PO SCH (09:40)
[2019-01-28] MEDS ORDERED: LOPERAMIDE 2 MG CAPSULE PO PRN ×2 (15:56)
[2019-01-28] MEDS ORDERED: ALPRAZolam 0.25 MG TABLET PO PRN (15:56)
[2019-01-28] MEDS ORDERED: guaiFENesin 200 MG/10 ML UDCUP PO PRN (15:56)
[2019-01-28] MEDS ORDERED: diphenhydrAMINE CAP 25 MG CAPSULE PO PRN (15:56)
[2019-01-28] MEDS ORDERED: TEMAZEPAM 7.5 MG CAPSULE PO PRN (15:56)
[2019-01-28] MEDS ORDERED: traMADol 50 MG TABLET PO PRN (15:56)
[2019-01-28] MEDS ORDERED: PROMETHAZINE INJ 25 MG in SODIUM CHLORIDE 0.9% 50 ML IV PRN (15:56)
[2019-01-28] MEDS ORDERED: MAGNESIUM HYDROXIDE SUSP 30 ML UDCUP PO PRN (15:56)
[2019-01-28] MEDS ORDERED: MYLANTA/LIDO VISC 2:1 300 ML BOTTLE SWISH/SPIT PRN (15:56)
[2019-01-28] MEDS ORDERED: ALUMINUM/MAGNES/SIMETH MAX STR 30 ML UDCUP PO PRN (15:56)
[2019-01-28] MEDS ORDERED: LACTULOSE 20 GM/30 ML UDCUP PO PRN (15:56)
[2019-01-28] MEDS ORDERED: MYLANTA/LIDO VISC 2:1 300 ML BOTTLE SWISH/SWAL PRN (15:56)
[2019-01-29] MEDS: THYROID 60 MG TABLET PO SCH (06:17)
[2019-01-29 06:50] LABS: Basophils # 0.1 10*3/uL (0.0-0.2); Basophils % 1.4 % (0.0-0.8); Eosinophils % 0.5 % (0.00-10.9); Hematocrit 29.7 VOL% (35.7-47.0); Hemoglobin 9.7 GM/DL (12.0-16.0); Immature Granulocytes % 6.6 %; Immature Granulocytes Absolute 0.28 #; Lymphocytes # 0.3 10*3/uL (1.4-4.0); Lymphocytes % 6.9 % (21.3-54.2); Mean Corpuscular HGB Conc 32.7 GM/DL (32-36); Mean Corpuscular Volume 104.2 FL (87-102); Mean Platelet Volume 11.6 FL (9.6-12.0); Monocytes % 19.4 % (1.7-12.7); Neutrophils % 65.2 % (38.7-73.9); Red Blood Count 2.85 MC/CUMM (3.8-5.5); Red Cell Distribution Width 16.7 % (9.3-17.3); White Blood Count 4.2 T/CUMM (4-12)
[2019-01-29 07:09] LABS: Albumin 2.4 G/DL (3.4-5.0); Calcium 8.3 MG/DL (8.5-10.1); Osmolality,Calculated 272.7 MOS/KG (273-304); Total Protein 4.9 G/DL (6.4-8.3)
[2019-01-29 07:14] LABS: Platelet Count 37 T/CUMM (130-400)
[2019-01-29 07:35] LABS: Band Neutrophils 5 % (0-10); Eosinophils 1 % (0-10); Hypochromasia Slight; Lymphocytes 5 % (20-55); Macrocytosis 1+; Platelet Estimate Decreased; Segmented Neutrophils 75 % (50-85); Total Cells Counted 100
[2019-01-29] MEDS: CARVEDILOL 6.25 MG TABLET PO SCH (08:12)
[2019-01-29] MEDS: SPIRONOLACTONE 50 MG TABLET PO SCH (08:12)
[2019-01-29] MEDS: FUROSEMIDE 20 MG TABLET PO SCH (08:13)
[2019-01-29] MEDS: amLODIPine 5 MG TABLET PO SCH (08:13)
[2019-01-29] MEDS: MONTELUKAST 10 MG TABLET PO SCH (08:23)
[2019-01-29] MEDS: PANTOPRAZOLE 40 MG TABLET PO SCH (08:23)
[2019-01-29] MEDS: URSODIOL 300 MG CAPSULE PO SCH ×2 (08:23→21:15)
[2019-01-29] MEDS: FILGRASTIM-SNDZ 300 MCG/0.5 ML SYRINGE SUBCUT SCH (08:23)
[2019-01-29] MEDS: MAGNESIUM CHLORIDE 64 MG TABLET PO SCH (08:23)
[2019-01-29] MEDS: CHOLECALCIFEROL 1,000 UNIT TABLET PO SCH (08:23)
[2019-01-30 06:15] LABS: Basophils # 0.1 10*3/uL (0.0-0.2); Basophils % 1.5 % (0.0-0.8); Eosinophils % 0.6 % (0.00-10.9); Hemoglobin 9.9 GM/DL (12.0-16.0); Immature Granulocytes Absolute 0.32 #; Lymphocytes # 0.4 10*3/uL (1.4-4.0); Lymphocytes % 7.1 % (21.3-54.2); Mean Corpuscular HGB Conc 34.1 GM/DL (32-36); Mean Corpuscular Volume 102.1 FL (87-102); Monocytes % 18.3 % (1.7-12.7); Neutrophils % 66.5 % (38.7-73.9); Red Blood Count 2.84 MC/CUMM (3.8-5.5); Red Cell Distribution Width 16.5 % (9.3-17.3); White Blood Count 5.4 T/CUMM (4-12)
[2019-01-30 06:36] LABS: Platelet Count 37 T/CUMM (130-400)
[2019-01-30 06:45] LABS: Albumin 2.6 G/DL (3.4-5.0); Bilirubin,Total 1.2 MG/DL (0.2-1.0); Calcium 8.3 MG/DL (8.5-10.1); Osmolality,Calculated 277.4 MOS/KG (273-304); Total Protein 4.8 G/DL (6.4-8.3)
[2019-01-30] MEDS: THYROID 60 MG TABLET PO SCH (06:50)
[2019-01-30 07:42] LABS: Band Neutrophils 9 % (0-10); Eosinophils 4 % (0-10); Lymphocytes 9 % (20-55); Metamyelocytes 2 %; Nucleated Red Blood Cells 1 (0-5); Segmented Neutrophils 65 % (50-85); Total Cells Counted 100
[2019-01-30 07:43] LABS: Anisocytosis 2+; Macrocytosis 2+; Platelet Estimate Decreased
[2019-01-30] MEDS: amLODIPine 5 MG TABLET PO SCH (09:41)
[2019-01-30] MEDS: SPIRONOLACTONE 50 MG TABLET PO SCH (09:41)
[2019-01-30] MEDS: FUROSEMIDE 20 MG TABLET PO SCH (09:41)
[2019-01-30] MEDS: CARVEDILOL 6.25 MG TABLET PO SCH (09:41)
[2019-01-30] MEDS: CHOLECALCIFEROL 1,000 UNIT TABLET PO SCH (09:45)
[2019-01-30] MEDS: PANTOPRAZOLE 40 MG TABLET PO SCH (09:45)
[2019-01-30] MEDS: MAGNESIUM CHLORIDE 64 MG TABLET PO SCH (09:45)
[2019-01-30] MEDS: URSODIOL 300 MG CAPSULE PO SCH ×2 (09:45→20:54)
[2019-01-30] MEDS: MONTELUKAST 10 MG TABLET PO SCH (09:45)
[2019-01-30] MEDS: FILGRASTIM-SNDZ 300 MCG/0.5 ML SYRINGE SUBCUT SCH (09:45)
[2019-01-31 04:09] LABS: Basophils # 0.1 10*3/uL (0.0-0.2); Basophils % 1.2 % (0.0-0.8); Eosinophils % 0.3 % (0.00-10.9); Hematocrit 29.2 VOL% (35.7-47.0); Hemoglobin 9.8 GM/DL (12.0-16.0); Immature Granulocytes % 4.9 %; Immature Granulocytes Absolute 0.29 #; Lymphocytes # 0.4 10*3/uL (1.4-4.0); Lymphocytes % 7.3 % (21.3-54.2); Mean Corpuscular HGB Conc 33.6 GM/DL (32-36); Mean Corpuscular Volume 102.8 FL (87-102); Mean Platelet Volume 11.8 FL (9.6-12.0); Monocytes % 17.2 % (1.7-12.7); Neutrophils % 69.1 % (38.7-73.9); Red Blood Count 2.84 MC/CUMM (3.8-5.5); Red Cell Distribution Width 16.5 % (9.3-17.3); White Blood Count 5.9 T/CUMM (4-12)
[2019-01-31 04:13] LABS: Calcium 8.3 MG/DL (8.5-10.1); Osmolality,Calculated 273.7 MOS/KG (273-304)
[2019-01-31 04:47] LABS: Platelet Count 39 T/CUMM (130-400)
[2019-01-31 05:18] LABS: Band Neutrophils 3 % (0-10); Eosinophils 1 % (0-10); Lymphocytes 9 % (20-55); Metamyelocytes 2 %; Ovalocytes Few; Platelet Estimate Decreased; Segmented Neutrophils 68 % (50-85); Total Cells Counted 100
[2019-01-31] MEDS ORDERED: SODIUM CHLORIDE 0.9% 1,000 ML IV PRN ×2 (06:34→07:35)
[2019-01-31] MEDS ORDERED: LIDOCAINE 1% 5 ML VIAL ONE (09:00)
[2019-01-31] MEDS ORDERED: PROPOFOL 200 MG/20 ML VIAL IV ONE (09:00)
[2019-01-31] MEDS: THYROID 60 MG TABLET PO SCH (10:51)
[2019-01-31] MEDS: FILGRASTIM-SNDZ 300 MCG/0.5 ML SYRINGE SUBCUT SCH (10:57)
[2019-01-31] MEDS: URSODIOL 300 MG CAPSULE PO SCH (14:43)
[2019-01-31] MEDS: FUROSEMIDE 20 MG TABLET PO SCH (14:43)
[2019-01-31] MEDS: CARVEDILOL 6.25 MG TABLET PO SCH (14:43)
[2019-01-31] MEDS: SPIRONOLACTONE 50 MG TABLET PO SCH (14:43)
[2019-01-31] MEDS: CHOLECALCIFEROL 1,000 UNIT TABLET PO SCH (14:44)
[2019-01-31] MEDS: PANTOPRAZOLE 40 MG TABLET PO SCH (14:44)
[2019-01-31] MEDS: amLODIPine 5 MG TABLET PO SCH (14:44)
[2019-01-31] MEDS: MAGNESIUM CHLORIDE 64 MG TABLET PO SCH (14:44)
[2019-01-31] MEDS: MONTELUKAST 10 MG TABLET PO SCH (14:44)
[2019-01-31 18:01] VITALS: BP 102/63
== END 2019-01-31 18:10 | disposition home or self-care (01) | DRG 808 ==
LOC: N.ED 12:13 → N.EDINP 12:13 → N.4E 16:51 → SUATTDRO 01-27 13:10
PROVIDERS: ADMIT Internal Medicine; ATTEND Internal Medicine

== ENCOUNTER 2019-04-08 08:59 | Inpatient (IN) ==
[2019-04-08] MEDS ORDERED: PANTOPRAZOLE 40 MG VIAL IV STA (09:58)
[2019-04-08] MEDS ORDERED: MEROPENEM 1,000 MG in SODIUM CHLORIDE 0.9% 100 ML IV STA (09:58)
[2019-04-08] MEDS ORDERED: SODIUM CHLORIDE 0.9% 1,000 ML IV STA ×2 (09:58→12:38)
[2019-04-08] MEDS ORDERED: metroNIDAZOLE INJ 500 MG in PREMIX 1 EACH IV STA (09:58)
[2019-04-08] MEDS ORDERED: ONDANSETRON 4 MG/2 ML VIAL IV STA (09:58)
[2019-04-08] MEDS ORDERED: MEROPENEM 1,000 MG VIAL IV ONE (10:17)
[2019-04-08 10:55] LABS: Basophils % 0.3 % (0.0-0.8); Hematocrit 32.2 VOL% (35.7-47.0); Immature Granulocytes % 8.4 %; Immature Granulocytes Absolute 0.63 #; Lymphocytes # 0.2 10*3/uL (1.4-4.0); Lymphocytes % 2.5 % (21.3-54.2); Mean Corpuscular HGB Conc 34.2 GM/DL (32-36); Mean Corpuscular Volume 106.3 FL (87-102); Mean Platelet Volume 11.2 FL (9.6-12.0); Monocytes % 10.2 % (1.7-12.7); Neutrophils % 78.6 % (38.7-73.9); Red Blood Count 3.03 MC/CUMM (3.8-5.5); Red Cell Distribution Width 14.6 % (9.3-17.3); White Blood Count 7.5 T/CUMM (4-12)
[2019-04-08 10:59] LABS: Platelet Count 22 T/CUMM (130-400)
[2019-04-08 11:01] LABS: Apearance,Urine CLEAR (Clear); Bilirubin,Urine Small mg/dL (Negative); Blood, Urine Negative (Negative); Glucose,Urine (UA) 50 mg/dL (Negative); Hyaline Casts,Urine 113 /LPF (0-3); INR 1.7; Ketones,Urine 5 mg/dL (Negative); Mucus,Urine Occasional /LPF (Occasional); Nitrite,Urine Negative (Negative); PT Patient Result 18.3 SECS (9.6-12.2); Protein,Urine 30 MG/DL; RBC,Urine <1 /HPF (0-4); Squamous Epithelial Cell,Urine Occasional /HPF (0-10); Urine Color Amber (Yellow); Urine Specific Gravity 1.024 (1.001-1.035); WBC,Urine <1 /HPF (0-6)
[2019-04-08 11:02] LABS: Partial Thromboplastin Time 42.7 SECS (20.8-36.0)
[2019-04-08 11:15] LABS: Alanine Aminotransferase 14 U/L (13-56); Albumin 2.4 G/DL (3.4-5.0); Alkaline Phosphatase 87 U/L (45-117); Amylase 12 U/L (25-115); Aspartate Amino Transferase 22 U/L (0-37); Blood Urea Nitrogen 35 MG/DL (7-18); Calcium 8.6 MG/DL (8.5-10.1); Estimated Glom Filtration Rate 28 ML/MIN; Glucose 196 MG/DL (74-106); Osmolality,Calculated 276.5 MOS/KG (273-304); Total Protein 5.3 G/DL (6.4-8.3); Troponin I < 0.015 NG/ML (0.00-0.045)
[2019-04-08 11:16] LABS: Band Neutrophils 9 % (0-10); Hypochromasia 1+; Lymphocytes 5 % (20-55); Metamyelocytes 2 %; Segmented Neutrophils 75 % (50-85); Total Cells Counted 100
[2019-04-08 11:17] LABS: Macrocytosis 1+; Platelet Estimate Decreased; Polychromasia Slight
[2019-04-08] MEDS ORDERED: ceFAZolin 1,000 MG in SYRINGE 1 EACH IV ONE (12:04)
[2019-04-08] MEDS ORDERED: LIDOCAINE 1% 20 ML VIAL ONE (12:28)
[2019-04-08] MEDS ORDERED: BUPIVACAINE 0.25% /EPI 10 ML VIAL ONE (12:28)
[2019-04-08] MEDS ORDERED: fentaNYL 100 MCG/2 ML VIAL ONE (15:36)
[2019-04-08] MEDS ORDERED: DESFLURANE 1 UNIT/15 MINUTE INH ONE (15:36)
[2019-04-08] MEDS ORDERED: LIDOCAINE 100 MG/5 ML SYRINGE ONE (15:36)
[2019-04-08] MEDS ORDERED: PROPOFOL 200 MG/20 ML VIAL IV ONE (15:36)
[2019-04-08] MEDS ORDERED: MIDAZOLAM 2 MG/2 ML VIAL ONE (15:36)
[2019-04-08] MEDS ORDERED: SUCCINYLCHOLINE 200 MG/10 ML VIAL ONE (15:37)
[2019-04-08] MEDS ORDERED: ROCURONIUM 100 MG/10 ML VIAL IV ONE (15:37)
[2019-04-08] MEDS ORDERED: SODIUM CHLORIDE 0.9% 1,000 ML IV ONE (15:37)
[2019-04-08] MEDS ORDERED: GLYCOPYRROLATE 0.4 MG/2 ML VIAL ONE (15:37)
[2019-04-08] MEDS ORDERED: NEOSTIGMINE 10 MG/10 ML VIAL ONE (15:37)
[2019-04-08] MEDS ORDERED: PHENYLEPHRINE 1 MG/10 ML SYRINGE IV ONE (15:37)
[2019-04-08] MEDS ORDERED: PHENYLEPHRINE DRIP 20 MG/250 ML PREMIX IV ONE (15:37)
[2019-04-08 15:49] LABS: Apearance,Urine Clear (Clear); Glucose,Urine (UA) Negative (Negative); Ketones,Urine Negative (Negative); Nitrite,Urine Negative (Negative); Protein,Urine Negative; Urine Color Amber (Yellow); Urine Specific Gravity 1.024 (1.001-1.035)
[2019-04-08 15:50] LABS: Bacteria,Urine Occasional /HPF (Few); Bilirubin,Urine Negative (Negative); Blood, Urine Negative (Negative); Hyaline Casts,Urine 79 /LPF (0-3); Squamous Epithelial Cell,Urine Occasional /HPF (0-10)
[2019-04-08 15:51] LABS: Mucus,Urine Few /LPF (Occasional)
[2019-04-08] MEDS ORDERED: ALBUMIN 5% 12.5 GM in PREMIX 1 EACH IV ONE (16:08)
[2019-04-08] MEDS ORDERED: ALBUMIN 5% 12.5 GM/250 ML VIAL IV ONE (16:09)
[2019-04-08] MEDS ORDERED: ACETAMINOPHEN 325 MG TABLET PO PRN (17:25)
[2019-04-08] MEDS: LACTATED RINGERS 1,000 ML IV SCH (17:25)
[2019-04-08] MEDS ORDERED: BISACODYL 5 MG TABLET PO PRN (17:25)
[2019-04-08 18:14] LABS: Hematocrit 23.1 VOL% (35.7-47.0); Red Blood Count 2.12 MC/CUMM (3.8-5.5); White Blood Count 4.1 T/CUMM (4-12)
[2019-04-08 18:15] LABS: Hemoglobin 7.5 GM/DL (12.0-16.0); Lymphocytes % 4.2 % (21.3-54.2); Mean Corpuscular HGB Conc 32.5 GM/DL (32-36); Mean Platelet Volume 10.7 FL (9.6-12.0); Monocytes % 12.5 % (1.7-12.7); Neutrophils % 71.1 % (38.7-73.9); Red Cell Distribution Width 14.9 % (9.3-17.3)
[2019-04-08 18:16] LABS: Basophils % 0.2 % (0.0-0.8); Immature Granulocytes Absolute 0.49 #; Lymphocytes # 0.2 10*3/uL (1.4-4.0)
[2019-04-08 18:17] LABS: Platelet Count 32 T/CUMM (130-400)
[2019-04-08 18:18] LABS: Calcium 8.3 MG/DL (8.5-10.1); Osmolality,Calculated 281.1 MOS/KG (273-304)
[2019-04-08 18:53] LABS: Anisocytosis 1+; Band Neutrophils 3 % (0-10); Lymphocytes 9 % (20-55); Segmented Neutrophils 75 % (50-85); Total Cells Counted 100
[2019-04-08 18:54] LABS: Elliptocytes 1+; Hypochromasia 1+; Platelet Estimate Decreased; Polychromasia Few
[2019-04-08] MEDS ORDERED: LACTATED RINGERS 500 ML IV ONE (19:31)
[2019-04-08] MEDS: PANTOPRAZOLE 40 MG TABLET PO SCH (21:25)
[2019-04-08] MEDS ORDERED: SODIUM CHLORIDE 0.9% 1,000 ML IV PRN (22:34)
[2019-04-09] MEDS ORDERED: NOREPINEPHRINE 8 MG in SODIUM CHLORIDE 0.9% 242 ML IV PRN (01:09)
[2019-04-09] MEDS ORDERED: LACTATED RINGERS 1,000 ML IV ONE (01:09)
[2019-04-09 01:41] LABS: Hematocrit 21.9 VOL% (35.7-47.0); Hemoglobin 7.4 GM/DL (12.0-16.0); Immature Granulocytes % 6.9 %; Immature Granulocytes Absolute 0.27 #; Lymphocytes # 0.3 10*3/uL (1.4-4.0); Lymphocytes % 7.6 % (21.3-54.2); Mean Corpuscular HGB Conc 33.8 GM/DL (32-36); Mean Corpuscular Volume 104.3 FL (87-102); Mean Platelet Volume 11.9 FL (9.6-12.0); Monocytes % 7.4 % (1.7-12.7); Neutrophils % 78.1 % (38.7-73.9); Platelet Count 49 T/CUMM (130-400); Red Cell Distribution Width 15.9 % (9.3-17.3); White Blood Count 3.9 T/CUMM (4-12)
[2019-04-09] MEDS ORDERED: SODIUM CHLORIDE 0.9% 1,000 ML IV PRN ×5 (01:43→20:05)
[2019-04-09 02:09] LABS: Band Neutrophils 8 % (0-10); Lymphocytes 4 % (20-55); Segmented Neutrophils 82 % (50-85); Total Cells Counted 100
[2019-04-09 02:10] LABS: Anisocytosis 1+; Ovalocytes 1+; Platelet Estimate Decreased
[2019-04-09] MEDS: LACTATED RINGERS 1,000 ML IV SCH ×4 (02:10→20:10)
[2019-04-09 02:43] LABS: INR 1.6; Partial Thromboplastin Time 39.1 SECS (20.8-36.0)
[2019-04-09] MEDS ORDERED: PROTHROMBIN COMPLEX IV ONE (03:00)
[2019-04-09 06:55] LABS: Basophils % 0.3 % (0.0-0.8); Hematocrit 20.2 VOL% (35.7-47.0); Hemoglobin 6.7 GM/DL (12.0-16.0); Immature Granulocytes % 9.2 %; Immature Granulocytes Absolute 0.29 #; Lymphocytes # 0.2 10*3/uL (1.4-4.0); Lymphocytes % 6.1 % (21.3-54.2); Mean Corpuscular HGB Conc 33.2 GM/DL (32-36); Mean Corpuscular Volume 104.7 FL (87-102); Mean Platelet Volume 11.4 FL (9.6-12.0); Monocytes % 13.7 % (1.7-12.7); Neutrophils % 70.7 % (38.7-73.9); Red Blood Count 1.93 MC/CUMM (3.8-5.5); Red Cell Distribution Width 16.1 % (9.3-17.3); White Blood Count 3.1 T/CUMM (4-12)
[2019-04-09 06:58] LABS: Platelet Count 29 T/CUMM (130-400)
[2019-04-09 07:08] LABS: Band Neutrophils 6 % (0-10); Lymphocytes 2 % (20-55); Metamyelocytes 2 %; Segmented Neutrophils 82 % (50-85); Total Cells Counted 100
[2019-04-09 07:10] LABS: Anisocytosis 1+; Hypochromasia 1+; Microcytosis 1+; Ovalocytes Slight; Platelet Estimate Decreased
[2019-04-09] MEDS: MONTELUKAST 10 MG TABLET PO SCH (08:59)
[2019-04-09] MEDS: PANTOPRAZOLE 40 MG TABLET PO SCH ×2 (08:59→21:58)
[2019-04-09] MEDS: THYROID 60 MG TABLET PO SCH (08:59)
[2019-04-09] MEDS: carvediloL 6.25 MG TABLET PO SCH (08:59)
[2019-04-09] MEDS ORDERED: SPIRONOLACTONE 100 MG TABLET PO SCH (09:00)
[2019-04-09] MEDS ORDERED: FUROSEMIDE 40 MG TABLET PO SCH (09:00)
[2019-04-09 14:59] LABS: Eosinophils % 0.3 % (0.00-10.9); Hematocrit 28.3 VOL% (35.7-47.0); Hemoglobin 9.8 GM/DL (12.0-16.0); Immature Granulocytes % 9.4 %; Immature Granulocytes Absolute 0.32 #; Lymphocytes # 0.2 10*3/uL (1.4-4.0); Lymphocytes % 4.7 % (21.3-54.2); Mean Corpuscular HGB Conc 34.6 GM/DL (32-36); Mean Corpuscular Volume 97.3 FL (87-102); Mean Platelet Volume 10.4 FL (9.6-12.0); Monocytes % 12.3 % (1.7-12.7); Neutrophils % 73.3 % (38.7-73.9); Platelet Count 47 T/CUMM (130-400); Red Blood Count 2.91 MC/CUMM (3.8-5.5); Red Cell Distribution Width 18.4 % (9.3-17.3); White Blood Count 3.4 T/CUMM (4-12)
[2019-04-09 15:21] LABS: Lymphocytes 4 % (20-55); Segmented Neutrophils 83 % (50-85); Total Cells Counted 100
[2019-04-09 15:22] LABS: Hypochromasia 1+; Microcytosis 1+; Ovalocytes Slight; Platelet Estimate Decreased
[2019-04-09 20:01] LABS: Eosinophils % 0.3 % (0.00-10.9); Hematocrit 28.2 VOL% (35.7-47.0); Hemoglobin 9.7 GM/DL (12.0-16.0); Immature Granulocytes % 5.5 %; Immature Granulocytes Absolute 0.16 #; Lymphocytes # 0.2 10*3/uL (1.4-4.0); Lymphocytes % 7.2 % (21.3-54.2); Mean Corpuscular HGB Conc 34.4 GM/DL (32-36); Mean Corpuscular Volume 96.9 FL (87-102); Mean Platelet Volume 10.4 FL (9.6-12.0); Platelet Count 41 T/CUMM (130-400); Red Blood Count 2.91 MC/CUMM (3.8-5.5); Red Cell Distribution Width 18.4 % (9.3-17.3); White Blood Count 2.9 T/CUMM (4-12)
[2019-04-09 20:13] LABS: Calcium 8.1 MG/DL (8.5-10.1); Osmolality,Calculated 287.7 MOS/KG (273-304)
[2019-04-09 20:21] LABS: Lymphocytes 7 % (20-55); Segmented Neutrophils 81 % (50-85); Total Cells Counted 100
[2019-04-09 20:22] LABS: Hypochromasia 1+; Microcytosis 1+; Ovalocytes 1+; Platelet Estimate Decreased; Polychromasia Few
[2019-04-09] MEDS: DEXTROSE 5% LACTATED RINGERS 1,000 ML IV SCH (21:15)
[2019-04-09] MEDS: MORPHINE PCA 30 MG/30 ML SYRINGE IV SCH ×2 (21:58→21:59)
[2019-04-10] MEDS: HYDROmorphone 2 MG/1 ML VIAL IV PRN (04:45)
[2019-04-10] MEDS: DEXTROSE 5% LACTATED RINGERS 1,000 ML IV SCH ×3 (05:45→22:44)
[2019-04-10 07:54] LABS: Eosinophils % 0.3 % (0.00-10.9); Hematocrit 28.9 VOL% (35.7-47.0); Hemoglobin 9.8 GM/DL (12.0-16.0); Immature Granulocytes % 4.5 %; Immature Granulocytes Absolute 0.14 #; Lymphocytes # 0.3 10*3/uL (1.4-4.0); Lymphocytes % 9.9 % (21.3-54.2); Mean Corpuscular HGB Conc 33.9 GM/DL (32-36); Mean Platelet Volume 10.4 FL (9.6-12.0); Monocytes % 8.7 % (1.7-12.7); Neutrophils % 76.6 % (38.7-73.9); Red Blood Count 2.95 MC/CUMM (3.8-5.5); Red Cell Distribution Width 18.5 % (9.3-17.3); White Blood Count 3.1 T/CUMM (4-12)
[2019-04-10 07:58] LABS: Platelet Count 47 T/CUMM (130-400)
[2019-04-10 08:14] LABS: Band Neutrophils 2 % (0-10); Hypochromasia Slight; Lymphocytes 3 % (20-55); Platelet Estimate Decreased; Segmented Neutrophils 84 % (50-85); Total Cells Counted 100
[2019-04-10 08:15] LABS: Microcytosis 1+
[2019-04-10] MEDS ORDERED: LACTATED RINGERS 500 ML IV ONE (09:06)
[2019-04-10] MEDS: MONTELUKAST 10 MG TABLET PO SCH (09:19)
[2019-04-10] MEDS: THYROID 60 MG TABLET PO SCH (09:19)
[2019-04-10] MEDS: PANTOPRAZOLE 40 MG TABLET PO SCH ×2 (09:19→21:08)
[2019-04-10] MEDS: carvediloL 6.25 MG TABLET PO SCH (10:40)
[2019-04-10] MEDS ORDERED: ENOXAPARIN 40 MG/0.4 ML SYRINGE SUBCUT SCH (15:16)
[2019-04-10 16:37] LABS: Eosinophils % 0.9 % (0.00-10.9); Hematocrit 31.7 VOL% (35.7-47.0); Hemoglobin 10.7 GM/DL (12.0-16.0); Immature Granulocytes % 1.1 %; Immature Granulocytes Absolute 0.04 #; Lymphocytes # 0.2 10*3/uL (1.4-4.0); Lymphocytes % 5.7 % (21.3-54.2); Mean Corpuscular HGB Conc 33.8 GM/DL (32-36); Mean Corpuscular Volume 97.5 FL (87-102); Monocytes % 16.5 % (1.7-12.7); Neutrophils % 75.8 % (38.7-73.9); Red Blood Count 3.25 MC/CUMM (3.8-5.5); Red Cell Distribution Width 17.9 % (9.3-17.3); White Blood Count 3.5 T/CUMM (4-12)
[2019-04-10 16:38] LABS: Platelet Count 51 T/CUMM (130-400)
[2019-04-10 16:52] LABS: Osmolality,Calculated 289.7 MOS/KG (273-304)
[2019-04-10 16:58] LABS: Burr Cells Few; Elliptocytes Few; Eosinophils 1 % (0-10); Hypochromasia Slight; Lymphocytes 8 % (20-55); Segmented Neutrophils 76 % (50-85); Total Cells Counted 100
[2019-04-10 16:59] LABS: Platelet Estimate Decreased; Polychromasia Slight
[2019-04-11] MEDS: DEXTROSE 5% LACTATED RINGERS 1,000 ML IV SCH ×2 (06:16→18:29)
[2019-04-11] MEDS ORDERED: MAGNESIUM SULF RIDER 4 GM in PREMIX 1 EACH IV ONE (06:42)
[2019-04-11] MEDS ORDERED: INFLUENZA VIRUS VACCINE 0.5 ML SYRINGE IM ONE (09:00)
[2019-04-11] MEDS: THYROID 60 MG TABLET PO SCH (09:45)
[2019-04-11] MEDS: PANTOPRAZOLE 40 MG TABLET PO SCH ×2 (09:46→21:48)
[2019-04-11] MEDS: MONTELUKAST 10 MG TABLET PO SCH (09:46)
[2019-04-12] MEDS: DEXTROSE 5% LACTATED RINGERS 1,000 ML IV SCH ×3 (02:10→20:59)
[2019-04-12 07:56] LABS: Eosinophils # 0.1 10*3/uL (0.0-0.87); Eosinophils % 2.5 % (0.00-10.9); Hematocrit 32.9 VOL% (35.7-47.0); Hemoglobin 11.4 GM/DL (12.0-16.0); Immature Granulocytes % 3.5 %; Immature Granulocytes Absolute 0.07 #; Lymphocytes # 0.3 10*3/uL (1.4-4.0); Lymphocytes % 16.5 % (21.3-54.2); Mean Corpuscular HGB Conc 34.7 GM/DL (32-36); Mean Corpuscular Volume 97.1 FL (87-102); Mean Platelet Volume 10.1 FL (9.6-12.0); Neutrophils % 52.5 % (38.7-73.9); Platelet Count 50 T/CUMM (130-400); Red Blood Count 3.39 MC/CUMM (3.8-5.5); Red Cell Distribution Width 17.2 % (9.3-17.3)
[2019-04-12 08:14] LABS: Band Neutrophils 1 % (0-10); Hypochromasia 1+; Lymphocytes 18 % (20-55); Ovalocytes Slight; Platelet Estimate Decreased; Segmented Neutrophils 59 % (50-85); Total Cells Counted 100
[2019-04-12 08:15] LABS: Microcytosis Slight
[2019-04-12 08:33] LABS: Osmolality,Calculated 282.8 MOS/KG (273-304)
[2019-04-12] MEDS: MONTELUKAST 10 MG TABLET PO SCH (08:42)
[2019-04-12] MEDS: THYROID 60 MG TABLET PO SCH (08:42)
[2019-04-12] MEDS: PANTOPRAZOLE 40 MG TABLET PO SCH ×2 (08:42→20:56)
[2019-04-13] MEDS: DEXTROSE 5% LACTATED RINGERS 1,000 ML IV SCH ×2 (00:11→19:37)
[2019-04-13 06:32] LABS: Bilirubin,Total 3.5 MG/DL (0.2-1.0); Calcium 8.4 MG/DL (8.5-10.1); Osmolality,Calculated 282.7 MOS/KG (273-304); Total Protein 4.5 G/DL (6.4-8.3)
[2019-04-13 07:14] LABS: Basophils % 0.4 % (0.0-0.8); Eosinophils # 0.1 10*3/uL (0.0-0.87); Eosinophils % 3.2 % (0.00-10.9); Hematocrit 35.7 VOL% (35.7-47.0); Lymphocytes # 0.4 10*3/uL (1.4-4.0); Lymphocytes % 16.3 % (21.3-54.2); Mean Corpuscular HGB Conc 33.6 GM/DL (32-36); Mean Corpuscular Volume 98.6 FL (87-102); Mean Platelet Volume 10.4 FL (9.6-12.0); Monocytes % 26.7 % (1.7-12.7); Neutrophils % 45.4 % (38.7-73.9); Platelet Count 49 T/CUMM (130-400); Red Blood Count 3.62 MC/CUMM (3.8-5.5); Red Cell Distribution Width 17.2 % (9.3-17.3); White Blood Count 2.5 T/CUMM (4-12)
[2019-04-13 07:30] LABS: Band Neutrophils 1 % (0-10); Eosinophils 1 % (0-10); Hypochromasia 1+; Lymphocytes 12 % (20-55); Microcytosis Slight; Platelet Estimate Decreased; Segmented Neutrophils 64 % (50-85); Total Cells Counted 100
[2019-04-13] MEDS: PANTOPRAZOLE 40 MG TABLET PO SCH ×2 (08:58→20:11)
[2019-04-13] MEDS: THYROID 60 MG TABLET PO SCH (08:58)
[2019-04-13] MEDS: MONTELUKAST 10 MG TABLET PO SCH (08:58)
[2019-04-13] MEDS: FILGRASTIM-SNDZ 300 MCG/0.5 ML SYRINGE SUBCUT SCH (09:57)
[2019-04-13] MEDS: FUROSEMIDE 20 MG TABLET PO SCH (15:45)
[2019-04-14 04:05] LABS: Basophils % 0.5 % (0.0-0.8); Eosinophils # 0.1 10*3/uL (0.0-0.87); Eosinophils % 0.7 % (0.00-10.9); Hematocrit 33.6 VOL% (35.7-47.0); Hemoglobin 11.3 GM/DL (12.0-16.0); Immature Granulocytes % 4.9 %; Immature Granulocytes Absolute 0.36 #; Lymphocytes # 0.3 10*3/uL (1.4-4.0); Lymphocytes % 4.1 % (21.3-54.2); Mean Corpuscular HGB Conc 33.6 GM/DL (32-36); Mean Corpuscular Volume 97.1 FL (87-102); Mean Platelet Volume 10.6 FL (9.6-12.0); Monocytes % 7.4 % (1.7-12.7); Neutrophils % 82.4 % (38.7-73.9); Red Blood Count 3.46 MC/CUMM (3.8-5.5); Red Cell Distribution Width 17.2 % (9.3-17.3); White Blood Count 7.3 T/CUMM (4-12)
[2019-04-14 04:11] LABS: Osmolality,Calculated 280.8 MOS/KG (273-304)
[2019-04-14 04:29] LABS: Platelet Count 39 T/CUMM (130-400)
[2019-04-14 04:42] LABS: Band Neutrophils 9 % (0-10); Lymphocytes 6 % (20-55); Metamyelocytes 3 %; Segmented Neutrophils 76 % (50-85)
[2019-04-14 04:43] LABS: Platelet Estimate Decreased
[2019-04-14 04:44] LABS: Total Cells Counted 100
[2019-04-14] MEDS ORDERED: FUROSEMIDE 40 MG/4 ML VIAL IV ONE (08:30)
[2019-04-14] MEDS ORDERED: BISACODYL 10 MG SUPP RECTAL ONE (09:10)
[2019-04-14] MEDS: HEPARIN DRIP 25,000 UNITS/500 ML PREMIX IV SCH (10:25)
[2019-04-14] MEDS: THYROID 60 MG TABLET PO SCH (10:27)
[2019-04-14] MEDS: FUROSEMIDE 20 MG TABLET PO SCH (10:27)
[2019-04-14] MEDS: MONTELUKAST 10 MG TABLET PO SCH (10:28)
[2019-04-14] MEDS: PANTOPRAZOLE 40 MG TABLET PO SCH ×2 (10:28→20:57)
[2019-04-14] MEDS: ONDANSETRON 4 MG/2 ML VIAL IV PRN (13:39)
[2019-04-14] MEDS: HYDROmorphone 2 MG/1 ML VIAL IV PRN (13:39)
[2019-04-14] MEDS ORDERED: ALBUMIN 25% 25 GM in PREMIX 1 EACH IV ONE (14:39)
[2019-04-14] MEDS ORDERED: PIPERACILLIN/TAZOBACTAM 3,375 MG in SODIUM CHLORIDE 0.9% 100 ML IV ONE (14:45)
[2019-04-14] MEDS: carvediloL 6.25 MG TABLET PO SCH (15:27)
[2019-04-14] MEDS: PIPERACILLIN/TAZOBACTAM 3,375 MG in SODIUM CHLORIDE 0.9% 100 ML IV SCH ×2 (15:30→22:29)
[2019-04-14] MEDS ORDERED: SPIRONOLACTONE 100 MG TABLET PO ONE (17:05)
[2019-04-14] MEDS: FILGRASTIM-SNDZ 300 MCG/0.5 ML SYRINGE SUBCUT SCH (18:37)
[2019-04-14] MEDS: DEXTROSE 5% LACTATED RINGERS 1,000 ML IV SCH (22:26)
[2019-04-15 05:39] LABS: Basophils % 0.5 % (0.0-0.8); Eosinophils % 0.1 % (0.00-10.9); Hematocrit 28.7 VOL% (35.7-47.0); Hemoglobin 9.9 GM/DL (12.0-16.0); Immature Granulocytes Absolute 0.63 #; Lymphocytes # 0.3 10*3/uL (1.4-4.0); Lymphocytes % 3.5 % (21.3-54.2); Mean Corpuscular HGB Conc 34.5 GM/DL (32-36); Mean Corpuscular Volume 96.3 FL (87-102); Mean Platelet Volume 11.2 FL (9.6-12.0); Monocytes % 7.5 % (1.7-12.7); Neutrophils % 80.4 % (38.7-73.9); Red Blood Count 2.98 MC/CUMM (3.8-5.5); Red Cell Distribution Width 17.1 % (9.3-17.3); White Blood Count 7.9 T/CUMM (4-12)
[2019-04-15 05:42] LABS: Platelet Count 28 T/CUMM (130-400)
[2019-04-15] MEDS: PIPERACILLIN/TAZOBACTAM 3,375 MG in SODIUM CHLORIDE 0.9% 100 ML IV SCH ×3 (06:01→22:41)
[2019-04-15 06:02] LABS: Albumin 2.2 G/DL (3.4-5.0); Bilirubin,Total 4.8 MG/DL (0.2-1.0); Calcium 8.3 MG/DL (8.5-10.1); Osmolality,Calculated 278.1 MOS/KG (273-304); Total Protein 4.6 G/DL (6.4-8.3)
[2019-04-15 06:19] LABS: Band Neutrophils 6 % (0-10); Lymphocytes 4 % (20-55); Segmented Neutrophils 83 % (50-85); Total Cells Counted 100
[2019-04-15 06:20] LABS: Anisocytosis 1+; Ovalocytes 1+; Toxic Granulation 1+
[2019-04-15 06:21] LABS: Platelet Estimate Decreased
[2019-04-15] MEDS ORDERED: SODIUM CHLORIDE 0.9% 1,000 ML IV PRN (07:13)
[2019-04-15] MEDS ORDERED: ALBUMIN 25% 25 GM in PREMIX 1 EACH IV SCH (07:14)
[2019-04-15] MEDS ORDERED: FUROSEMIDE 40 MG/4 ML VIAL IV ONE (07:16)
[2019-04-15] MEDS ORDERED: ALBUMIN 25% 50 GM in PREMIX 1 EACH IV ONE (08:00)
[2019-04-15] MEDS: ALBUMIN 25% 25 GM in PREMIX 1 EACH IV SCH ×2 (08:10→20:42)
[2019-04-15] MEDS ORDERED: BISACODYL 10 MG SUPP RECTAL ONE (08:16)
[2019-04-15] MEDS: THYROID 60 MG TABLET PO SCH (08:41)
[2019-04-15] MEDS: FUROSEMIDE 20 MG TABLET PO SCH (08:42)
[2019-04-15] MEDS: MONTELUKAST 10 MG TABLET PO SCH (08:42)
[2019-04-15] MEDS: FILGRASTIM-SNDZ 300 MCG/0.5 ML SYRINGE SUBCUT SCH (08:42)
[2019-04-15] MEDS: carvediloL 6.25 MG TABLET PO SCH (08:42)
[2019-04-15] MEDS: PANTOPRAZOLE 40 MG TABLET PO SCH ×2 (08:42→20:40)
[2019-04-15] MEDS: SPIRONOLACTONE 100 MG TABLET PO SCH (08:42)
[2019-04-15] MEDS: ONDANSETRON 4 MG/2 ML VIAL IV PRN (10:52)
[2019-04-15 17:31] LABS: Neutrophils,Peritoneal Fluid 93 %
[2019-04-15 17:34] LABS: RBC,Peritoneal Fluid > 100000 T/CUMM
[2019-04-16 04:15] LABS: Basophils % 0.4 % (0.0-0.8); Eosinophils % 0.2 % (0.00-10.9); Hematocrit 24.4 VOL% (35.7-47.0); Hemoglobin 8.2 GM/DL (12.0-16.0); Immature Granulocytes % 7.2 %; Immature Granulocytes Absolute 0.36 #; Lymphocytes # 0.3 10*3/uL (1.4-4.0); Lymphocytes % 5.8 % (21.3-54.2); Mean Corpuscular HGB Conc 33.6 GM/DL (32-36); Mean Corpuscular Volume 98.4 FL (87-102); Mean Platelet Volume 9.6 FL (9.6-12.0); Neutrophils % 78.4 % (38.7-73.9); Red Blood Count 2.48 MC/CUMM (3.8-5.5); Red Cell Distribution Width 17.6 % (9.3-17.3)
[2019-04-16 04:27] LABS: Platelet Count 26 T/CUMM (130-400)
[2019-04-16 04:37] LABS: INR 1.5; PT Patient Result 15.7 SECS (9.6-12.2)
[2019-04-16 04:39] LABS: Partial Thromboplastin Time 46.2 SECS (20.8-36.0)
[2019-04-16 04:55] LABS: Calcium 8.2 MG/DL (8.5-10.1)
[2019-04-16 06:11] LABS: Lymphocytes 3 % (20-55); Segmented Neutrophils 88 % (50-85); Total Cells Counted 100
[2019-04-16 06:12] LABS: Anisocytosis 1+
[2019-04-16] MEDS: PIPERACILLIN/TAZOBACTAM 3,375 MG in SODIUM CHLORIDE 0.9% 100 ML IV SCH ×3 (06:14→22:46)
[2019-04-16 06:15] LABS: Macrocytosis Slight; Ovalocytes Few; Platelet Estimate Decreased
[2019-04-16] MEDS: DEXTROSE 5% LACTATED RINGERS 1,000 ML IV SCH (06:15)
[2019-04-16] MEDS: THYROID 60 MG TABLET PO SCH (09:20)
[2019-04-16] MEDS: SPIRONOLACTONE 100 MG TABLET PO SCH (09:20)
[2019-04-16] MEDS: FUROSEMIDE 20 MG TABLET PO SCH (09:20)
[2019-04-16] MEDS: PANTOPRAZOLE 40 MG TABLET PO SCH ×2 (09:26→20:09)
[2019-04-16] MEDS: MONTELUKAST 10 MG TABLET PO SCH (09:26)
[2019-04-16] MEDS: carvediloL 6.25 MG TABLET PO SCH (09:27)
[2019-04-16] MEDS: FILGRASTIM-SNDZ 300 MCG/0.5 ML SYRINGE SUBCUT SCH (10:13)
[2019-04-16] MEDS: ALBUMIN 25% 25 GM in PREMIX 1 EACH IV SCH ×2 (10:13→22:46)
[2019-04-16] MEDS ORDERED: SODIUM CHLORIDE 0.9% 1,000 ML IV PRN (10:29)
[2019-04-16] MEDS: HEPARIN DRIP 25,000 UNITS/500 ML PREMIX IV SCH (10:35)
[2019-04-16] MEDS ORDERED: MAGNESIUM SULF RIDER 4 GM in PREMIX 1 EACH IV PRN (11:07)
[2019-04-16] MEDS: FUROSEMIDE 40 MG TABLET PO SCH (12:10)
[2019-04-17] MEDS: MAGNESIUM SULF RIDER 2 GM in PREMIX 1 EACH IV PRN (02:55)
[2019-04-17 05:32] LABS: Basophils % 0.3 % (0.0-0.8); Eosinophils % 0.3 % (0.00-10.9); Hematocrit 23.6 VOL% (35.7-47.0); Immature Granulocytes % 9.5 %; Immature Granulocytes Absolute 0.34 #; Lymphocytes # 0.2 10*3/uL (1.4-4.0); Lymphocytes % 6.7 % (21.3-54.2); Mean Corpuscular HGB Conc 33.9 GM/DL (32-36); Mean Corpuscular Volume 96.7 FL (87-102); Mean Platelet Volume 11.1 FL (9.6-12.0); Monocytes % 11.8 % (1.7-12.7); Neutrophils % 71.4 % (38.7-73.9); Red Blood Count 2.44 MC/CUMM (3.8-5.5); Red Cell Distribution Width 17.3 % (9.3-17.3); White Blood Count 3.6 T/CUMM (4-12)
[2019-04-17 05:37] LABS: INR 1.3; PT Patient Result 13.8 SECS (9.6-12.2)
[2019-04-17 05:38] LABS: Platelet Count 35 T/CUMM (130-400)
[2019-04-17 05:42] LABS: Calcium 8.4 MG/DL (8.5-10.1); Osmolality,Calculated 280.8 MOS/KG (273-304)
[2019-04-17 05:43] LABS: Partial Thromboplastin Time 40.1 SECS (20.8-36.0)
[2019-04-17] MEDS ORDERED: SODIUM CHLORIDE 0.9% 1,000 ML IV PRN (05:58)
[2019-04-17] MEDS: PIPERACILLIN/TAZOBACTAM 3,375 MG in SODIUM CHLORIDE 0.9% 100 ML IV SCH ×3 (06:07→23:19)
[2019-04-17 06:20] LABS: Band Neutrophils 1 % (0-10); Eosinophils 2 % (0-10); Hypochromasia 1+; Lymphocytes 9 % (20-55); Metamyelocytes 1 %; Ovalocytes 1+; Platelet Estimate Decreased; Segmented Neutrophils 73 % (50-85); Total Cells Counted 100
[2019-04-17] MEDS: DEXTROSE 5% LACTATED RINGERS 1,000 ML IV SCH ×2 (07:52→19:59)
[2019-04-17] MEDS: FILGRASTIM-SNDZ 300 MCG/0.5 ML SYRINGE SUBCUT SCH (08:48)
[2019-04-17] MEDS: POTASSIUM CHLORIDE 20 MEQ TABLET PO PRN ×4 (08:48→15:13)
[2019-04-17] MEDS: MONTELUKAST 10 MG TABLET PO SCH (08:48)
[2019-04-17] MEDS: PANTOPRAZOLE 40 MG TABLET PO SCH ×2 (08:48→20:51)
[2019-04-17] MEDS: SPIRONOLACTONE 100 MG TABLET PO SCH (08:49)
[2019-04-17] MEDS: THYROID 60 MG TABLET PO SCH (08:50)
[2019-04-17] MEDS: FUROSEMIDE 40 MG TABLET PO SCH ×2 (08:50→15:14)
[2019-04-17] MEDS: carvediloL 6.25 MG TABLET PO SCH (08:50)
[2019-04-17] MEDS: ALBUMIN 25% 25 GM in PREMIX 1 EACH IV SCH ×2 (11:33→23:19)
[2019-04-18 05:09] LABS: INR 1.2; PT Patient Result 13.4 SECS (9.6-12.2); Partial Thromboplastin Time 38.4 SECS (20.8-36.0)
[2019-04-18] MEDS: PIPERACILLIN/TAZOBACTAM 3,375 MG in SODIUM CHLORIDE 0.9% 100 ML IV SCH (06:05)
[2019-04-18 07:15] LABS: Basophils % 0.3 % (0.0-0.8); Eosinophils % 0.3 % (0.00-10.9); Hematocrit 24.1 VOL% (35.7-47.0); Hemoglobin 8.1 GM/DL (12.0-16.0); Immature Granulocytes % 9.8 %; Lymphocytes # 0.2 10*3/uL (1.4-4.0); Lymphocytes % 7.2 % (21.3-54.2); Mean Corpuscular HGB Conc 33.6 GM/DL (32-36); Mean Corpuscular Volume 98.8 FL (87-102); Mean Platelet Volume 11.4 FL (9.6-12.0); Monocytes % 13.1 % (1.7-12.7); Neutrophils % 69.3 % (38.7-73.9); Red Blood Count 2.44 MC/CUMM (3.8-5.5); Red Cell Distribution Width 17.9 % (9.3-17.3); White Blood Count 3.1 T/CUMM (4-12)
[2019-04-18 07:20] LABS: Platelet Count 37 T/CUMM (130-400)
[2019-04-18 07:23] LABS: Calcium 8.4 MG/DL (8.5-10.1); Osmolality,Calculated 280.7 MOS/KG (273-304)
[2019-04-18 07:34] LABS: Band Neutrophils 5 % (0-10); Eosinophils 1 % (0-10); Lymphocytes 6 % (20-55); Segmented Neutrophils 79 % (50-85); Total Cells Counted 100
[2019-04-18 07:35] LABS: Hypochromasia 1+; Platelet Estimate Decreased
[2019-04-18 08:19] LABS: Alanine Aminotransferase < 9 U/L (13-56); Alkaline Phosphatase 76 U/L (45-117); Aspartate Amino Transferase 13 U/L (0-37); Blood Urea Nitrogen 25 MG/DL (7-18); Calcium 8.9 MG/DL (8.5-10.1); Estimated Glom Filtration Rate 67 ML/MIN; Glucose 134 MG/DL (74-106); Osmolality,Calculated 282.5 MOS/KG (273-304); Total Protein 4.9 G/DL (6.4-8.3)
[2019-04-18] MEDS: THYROID 60 MG TABLET PO SCH (08:48)
[2019-04-18] MEDS: SPIRONOLACTONE 100 MG TABLET PO SCH ×2 (08:48→20:14)
[2019-04-18] MEDS: MONTELUKAST 10 MG TABLET PO SCH (08:48)
[2019-04-18] MEDS: PANTOPRAZOLE 40 MG TABLET PO SCH ×2 (08:49→20:14)
[2019-04-18] MEDS: carvediloL 6.25 MG TABLET PO SCH (08:49)
[2019-04-18] MEDS: FUROSEMIDE 40 MG TABLET PO SCH (08:49)
[2019-04-18] MEDS: FILGRASTIM-SNDZ 300 MCG/0.5 ML SYRINGE SUBCUT SCH (09:26)
[2019-04-18] MEDS ORDERED: SODIUM CHLORIDE 0.9% 1,000 ML IV PRN (10:20)
[2019-04-18] MEDS ORDERED: MAGNESIUM OXIDE 400 MG TABLET PO ONE (10:21)
[2019-04-18] MEDS: POTASSIUM CHLORIDE 20 MEQ TABLET PO SCH (12:31)
[2019-04-18] MEDS: ALBUMIN 25% 25 GM in PREMIX 1 EACH IV SCH ×2 (12:32→23:42)
[2019-04-18] MEDS: POTASSIUM CHLORIDE RIDER 10 MEQ in PREMIX 1 EACH IV SCH ×2 (14:10→15:53)
[2019-04-18] MEDS ORDERED: POTASSIUM CHLORIDE RIDER 10 MEQ in PREMIX 1 EACH IV SCH (16:00)
[2019-04-18] MEDS: FUROSEMIDE 80 MG TABLET PO SCH (16:16)
[2019-04-18] MEDS: MAGNESIUM SULF RIDER 2 GM in PREMIX 1 EACH IV PRN (18:20)
[2019-04-19 04:53] LABS: Basophils % 0.4 % (0.0-0.8); Eosinophils % 0.7 % (0.00-10.9); Hematocrit 22.1 VOL% (35.7-47.0); Hemoglobin 7.3 GM/DL (12.0-16.0); Immature Granulocytes % 7.5 %; Immature Granulocytes Absolute 0.21 #; Lymphocytes # 0.2 10*3/uL (1.4-4.0); Lymphocytes % 7.9 % (21.3-54.2); Mean Corpuscular Volume 100.5 FL (87-102); Mean Platelet Volume 11.2 FL (9.6-12.0); Monocytes % 10.4 % (1.7-12.7); Neutrophils % 73.1 % (38.7-73.9); Platelet Count 43 T/CUMM (130-400); Red Cell Distribution Width 17.8 % (9.3-17.3); White Blood Count 2.8 T/CUMM (4-12)
[2019-04-19 05:19] LABS: Band Neutrophils 3 % (0-10); Hypochromasia 1+; Lymphocytes 9 % (20-55); Platelet Estimate Decreased; Segmented Neutrophils 78 % (50-85); Total Cells Counted 100
[2019-04-19 05:27] LABS: Albumin 3.2 G/DL (3.4-5.0); Bilirubin,Total 3.1 MG/DL (0.2-1.0); Calcium 8.7 MG/DL (8.5-10.1); Osmolality,Calculated 282.5 MOS/KG (273-304); Total Protein 4.9 G/DL (6.4-8.3)
[2019-04-19] MEDS ORDERED: SODIUM CHLORIDE 0.9% 1,000 ML IV PRN (07:43)
[2019-04-19] MEDS: DEXTROSE 5% LACTATED RINGERS 1,000 ML IV SCH (08:24)
[2019-04-19] MEDS: MONTELUKAST 10 MG TABLET PO SCH (09:11)
[2019-04-19] MEDS: SPIRONOLACTONE 100 MG TABLET PO SCH ×2 (09:11→20:46)
[2019-04-19] MEDS: PANTOPRAZOLE 40 MG TABLET PO SCH ×2 (09:11→20:46)
[2019-04-19] MEDS: POTASSIUM CHLORIDE 20 MEQ TABLET PO SCH (09:11)
[2019-04-19] MEDS: FUROSEMIDE 80 MG TABLET PO SCH ×2 (09:11→15:16)
[2019-04-19] MEDS: carvediloL 6.25 MG TABLET PO SCH (09:11)
[2019-04-19] MEDS: THYROID 60 MG TABLET PO SCH (09:12)
[2019-04-19] MEDS: FILGRASTIM-SNDZ 300 MCG/0.5 ML SYRINGE SUBCUT SCH (09:12)
[2019-04-19] MEDS: ALBUMIN 25% 25 GM in PREMIX 1 EACH IV SCH ×2 (11:22→22:22)
[2019-04-20 05:56] LABS: Basophils % 0.7 % (0.0-0.8); Eosinophils % 0.5 % (0.00-10.9); Hematocrit 28.3 VOL% (35.7-47.0); Hemoglobin 9.4 GM/DL (12.0-16.0); Immature Granulocytes % 9.2 %; Immature Granulocytes Absolute 0.39 #; Lymphocytes # 0.2 10*3/uL (1.4-4.0); Lymphocytes % 5.7 % (21.3-54.2); Mean Corpuscular HGB Conc 33.2 GM/DL (32-36); Mean Corpuscular Volume 96.3 FL (87-102); Mean Platelet Volume 11.7 FL (9.6-12.0); Monocytes % 9.4 % (1.7-12.7); Neutrophils % 74.5 % (38.7-73.9); Red Blood Count 2.94 MC/CUMM (3.8-5.5); Red Cell Distribution Width 18.3 % (9.3-17.3); White Blood Count 4.2 T/CUMM (4-12)
[2019-04-20 06:00] LABS: Platelet Count 39 T/CUMM (130-400)
[2019-04-20 06:18] LABS: Albumin 3.3 G/DL (3.4-5.0); Bilirubin,Total 4.2 MG/DL (0.2-1.0); Calcium 8.9 MG/DL (8.5-10.1); Osmolality,Calculated 277.8 MOS/KG (273-304); Total Protein 5.2 G/DL (6.4-8.3)
[2019-04-20 06:26] LABS: Band Neutrophils 6 % (0-10); Eosinophils 1 % (0-10); Hypochromasia 1+; Lymphocytes 10 % (20-55); Platelet Estimate Decreased; Segmented Neutrophils 76 % (50-85); Total Cells Counted 100
[2019-04-20] MEDS: FUROSEMIDE 80 MG TABLET PO SCH ×2 (10:11→17:05)
[2019-04-20] MEDS: FILGRASTIM-SNDZ 300 MCG/0.5 ML SYRINGE SUBCUT SCH (10:11)
[2019-04-20] MEDS: SPIRONOLACTONE 100 MG TABLET PO SCH ×2 (10:12→20:15)
[2019-04-20] MEDS: THYROID 60 MG TABLET PO SCH (10:12)
[2019-04-20] MEDS: carvediloL 6.25 MG TABLET PO SCH (10:12)
[2019-04-20] MEDS: PANTOPRAZOLE 40 MG TABLET PO SCH ×2 (10:13→20:15)
[2019-04-20] MEDS: MONTELUKAST 10 MG TABLET PO SCH (10:13)
[2019-04-20] MEDS: POTASSIUM CHLORIDE 20 MEQ TABLET PO SCH (10:13)
[2019-04-20] MEDS: DEXTROSE 5% LACTATED RINGERS 1,000 ML IV SCH ×2 (10:53→19:16)
[2019-04-20] MEDS: ALBUMIN 25% 25 GM in PREMIX 1 EACH IV SCH (11:59)
[2019-04-21 06:16] LABS: Basophils % 0.5 % (0.0-0.8); Eosinophils % 0.5 % (0.00-10.9); Hematocrit 29.2 VOL% (35.7-47.0); Hemoglobin 9.6 GM/DL (12.0-16.0); Immature Granulocytes Absolute 0.15 #; Lymphocytes # 0.2 10*3/uL (1.4-4.0); Lymphocytes % 5.9 % (21.3-54.2); Mean Corpuscular HGB Conc 32.9 GM/DL (32-36); Mean Platelet Volume 11.8 FL (9.6-12.0); Monocytes % 11.6 % (1.7-12.7); Neutrophils % 77.5 % (38.7-73.9); Red Blood Count 3.01 MC/CUMM (3.8-5.5); Red Cell Distribution Width 17.9 % (9.3-17.3); White Blood Count 3.7 T/CUMM (4-12)
[2019-04-21 06:18] LABS: Platelet Count 34 T/CUMM (130-400)
[2019-04-21 06:36] LABS: Band Neutrophils 2 % (0-10); Hypochromasia 1+; Lymphocytes 8 % (20-55); Platelet Estimate Decreased; Segmented Neutrophils 84 % (50-85); Total Cells Counted 100
[2019-04-21 06:37] LABS: Albumin 3.2 G/DL (3.4-5.0); Bilirubin,Total 3.1 MG/DL (0.2-1.0); Calcium 8.7 MG/DL (8.5-10.1); Total Protein 5.1 G/DL (6.4-8.3)
[2019-04-21] MEDS: FUROSEMIDE 80 MG TABLET PO SCH ×2 (10:07→17:50)
[2019-04-21] MEDS: carvediloL 6.25 MG TABLET PO SCH (10:07)
[2019-04-21] MEDS: MONTELUKAST 10 MG TABLET PO SCH (10:08)
[2019-04-21] MEDS: FILGRASTIM-SNDZ 300 MCG/0.5 ML SYRINGE SUBCUT SCH (10:08)
[2019-04-21] MEDS: SPIRONOLACTONE 100 MG TABLET PO SCH ×2 (10:08→21:04)
[2019-04-21] MEDS: THYROID 60 MG TABLET PO SCH (10:08)
[2019-04-21] MEDS: POTASSIUM CHLORIDE 20 MEQ TABLET PO SCH (10:08)
[2019-04-21] MEDS: PANTOPRAZOLE 40 MG TABLET PO SCH ×2 (10:15→21:04)
[2019-04-21] MEDS ORDERED: SODIUM CHLORIDE 0.9% 1,000 ML IV PRN (12:00)
[2019-04-21] MEDS: DEXTROSE 5% LACTATED RINGERS 1,000 ML IV SCH (18:00)
[2019-04-21] MEDS ORDERED: MIRTAZAPINE 15 MG TABLET PO SCH (22:00)
[2019-04-21] MEDS ORDERED: MIRTAZAPINE 30 MG TABLET PO SCH (22:00)
[2019-04-22 05:20] LABS: Basophils # 0.1 10*3/uL (0.0-0.2); Basophils % 1.1 % (0.0-0.8); Eosinophils % 0.5 % (0.00-10.9); Hematocrit 34.8 VOL% (35.7-47.0); Hemoglobin 11.6 GM/DL (12.0-16.0); Immature Granulocytes % 2.3 %; Immature Granulocytes Absolute 0.15 #; Lymphocytes # 0.3 10*3/uL (1.4-4.0); Mean Corpuscular HGB Conc 33.3 GM/DL (32-36); Mean Corpuscular Volume 96.7 FL (87-102); Mean Platelet Volume 11.2 FL (9.6-12.0); Monocytes % 11.9 % (1.7-12.7); Neutrophils % 79.2 % (38.7-73.9); Platelet Count 48 T/CUMM (130-400); Red Cell Distribution Width 17.5 % (9.3-17.3); White Blood Count 6.6 T/CUMM (4-12)
[2019-04-22 05:42] LABS: Lymphocytes 5 % (20-55); Segmented Neutrophils 88 % (50-85); Total Cells Counted 100
[2019-04-22 05:43] LABS: Platelet Estimate Decreased; Polychromasia Few
[2019-04-22 05:44] LABS: Albumin 2.7 G/DL (3.4-5.0); Bilirubin,Total 3.8 MG/DL (0.2-1.0); Calcium 8.6 MG/DL (8.5-10.1); Total Protein 4.7 G/DL (6.4-8.3)
[2019-04-22] MEDS: MONTELUKAST 10 MG TABLET PO SCH (09:04)
[2019-04-22] MEDS: PANTOPRAZOLE 40 MG TABLET PO SCH (09:04)
[2019-04-22] MEDS: FUROSEMIDE 80 MG TABLET PO SCH (09:04)
[2019-04-22] MEDS: carvediloL 6.25 MG TABLET PO SCH (09:04)
[2019-04-22] MEDS: SPIRONOLACTONE 100 MG TABLET PO SCH (09:05)
[2019-04-22] MEDS: FILGRASTIM-SNDZ 300 MCG/0.5 ML SYRINGE SUBCUT SCH (09:05)
[2019-04-22] MEDS: POTASSIUM CHLORIDE 20 MEQ TABLET PO SCH (09:05)
[2019-04-22] MEDS: THYROID 60 MG TABLET PO SCH (09:05)
[2019-04-22] MEDS ORDERED: MENTHOL/ZINC OXIDE OINT 71 GM JAR TOP SCH (12:30)
[2019-04-22] MEDS ORDERED: OXYBUTYNIN 5 MG TABLET PO SCH (13:30)
[2019-04-22 13:38] VITALS: BP 109/61
[2019-04-22] MEDS ORDERED: HEPARIN LOCK FLUSH 500 UNIT/5 ML SYRINGE IV ONE (14:43)
== END 2019-04-22 15:20 | disposition home health service (06) | DRG 329 ==
LOC: N.ED 08:59 → N.EDINP 12:30 → N.CC 12:45 → N.3E 04-10 15:13
PROVIDERS: ADMIT Student in an Organized Health Care Education/Training Program; ATTEND Student in an Organized Health Care Education/Training Program

== ENCOUNTER 2021-06-04 09:01 | Inpatient (IN) ==
[2021-06-04 11:46] LABS: Basophils % 0.5 % (0.0-0.8); Eosinophils # 0.1 10*3/uL (0.0-0.87); Eosinophils % 2.9 % (0.00-10.9); Hematocrit 22.1 VOL% (35.7-47.0); Hemoglobin 7.7 GM/DL (12.0-16.0); Immature Granulocytes Absolute 0.02 #; Lymphocytes # 0.4 10*3/uL (1.4-4.0); Lymphocytes % 16.7 % (21.3-54.2); Mean Corpuscular HGB Conc 34.8 GM/DL (32-36); Mean Corpuscular Volume 104.7 FL (87-102); Mean Platelet Volume 10.9 FL (9.6-12.0); Monocytes % 20.5 % (1.7-12.7); Neutrophils % 58.4 % (38.7-73.9); Red Blood Count 2.11 MC/CUMM (3.8-5.5); Red Cell Distribution Width 16.2 % (9.3-17.3); White Blood Count 2.1 T/CUMM (4-12)
[2021-06-04 11:50] LABS: Platelet Count 36 T/CUMM (130-400)
[2021-06-04 11:55] LABS: INR 1.2; PT Patient Result 13.5 SECS (10.5-12.0)
[2021-06-04 12:03] LABS: Albumin 2.7 G/DL (3.4-5.0); Bilirubin,Total 3.2 MG/DL (0.20-1.00); Calcium 8.2 MG/DL (8.5-10.1); Osmolality,Calculated 248.8 MOS/KG (273-304); Potassium 4.8 MMOL/L (3.5-5.1); Total Protein 5.6 G/DL (6.4-8.2)
[2021-06-04] MEDS ORDERED: SODIUM CHLORIDE 0.9% 500 ML IV STA (12:10)
[2021-06-04 12:20] LABS: Eosinophils 2 % (0-10); Lymphocytes 15 % (20-55); Segmented Neutrophils 60 % (50-85); Total Cells Counted 100
[2021-06-04 12:23] LABS: Macrocytosis 1+; Polychromasia Slight
[2021-06-04 12:25] LABS: Ovalocytes Few; Platelet Estimate Decreased
[2021-06-04 12:27] LABS: Bilirubin,Urine Negative (Negative); Blood, Urine Negative (Negative); Glucose,Urine (UA) Negative (Negative); Hyaline Casts,Urine 1 /LPF (0-3); Ketones,Urine Negative (Negative); Mucus,Urine Occasional /LPF (Occasional); Nitrite,Urine Negative (Negative); Protein,Urine Negative; RBC,Urine <1 /HPF (0-4); Squamous Epithelial Cell,Urine Occasional /HPF (0-10); Urine Appearance CLEAR (Clear); Urine Color Yellow (Yellow); Urine Specific Gravity 1.015 (1.001-1.035)
[2021-06-04] MEDS ORDERED: DEXTROSE 50% 25 GM/50 ML VIAL IV PRN (13:36)
[2021-06-04] MEDS ORDERED: ONDANSETRON 4 MG/2 ML VIAL IV PRN (13:36)
[2021-06-04] MEDS ORDERED: GLUCAGON 1 MG VIAL IM PRN (13:36)
[2021-06-04] MEDS ORDERED: SODIUM CHLORIDE 0.9% 1,000 ML IV PRN ×2 (13:44→13:45)
[2021-06-04] MEDS: SODIUM CHLORIDE 0.9% 1,000 ML IV SCH (14:00)
[2021-06-04] MEDS: PANTOPRAZOLE 40 MG TABLET PO SCH (20:34)
[2021-06-04] MEDS: carvediloL 6.25 MG TABLET PO SCH (20:34)
[2021-06-04] MEDS: MAGNESIUM CHLORIDE 64 MG TABLET PO SCH (20:34)
[2021-06-04] MEDS ORDERED: PREDNISOLONE SODIUM PHOSPHATE 1% RIGHT EYE SCH (21:00)
[2021-06-04] MEDS ORDERED: URSODIOL 250 MG PO SCH (21:00)
[2021-06-05 05:53] LABS: Eosinophils % 1.6 % (0.00-10.9); Hematocrit 20.9 VOL% (35.7-47.0); Hemoglobin 7.5 GM/DL (12.0-16.0); Lymphocytes # 0.3 10*3/uL (1.4-4.0); Lymphocytes % 20.9 % (21.3-54.2); Mean Corpuscular HGB Conc 35.9 GM/DL (32-36); Mean Platelet Volume 10.2 FL (9.6-12.0); Monocytes % 22.5 % (1.7-12.7); Red Blood Count 2.09 MC/CUMM (3.8-5.5); Red Cell Distribution Width 18.2 % (9.3-17.3)
[2021-06-05 06:02] LABS: Albumin 2.2 G/DL (3.4-5.0); Calcium 7.9 MG/DL (8.5-10.1); Osmolality,Calculated 254.4 MOS/KG (273-304); Potassium 4.4 MMOL/L (3.5-5.1); Total Protein 4.8 G/DL (6.4-8.2)
[2021-06-05 06:13] LABS: White Blood Count 1.3 T/CUMM (4-12)
[2021-06-05 06:14] LABS: Platelet Count 28 T/CUMM (130-400)
[2021-06-05 06:29] LABS: Eosinophils 4 % (0-10); Lymphocytes 23 % (20-55); Platelet Estimate Decreased; Segmented Neutrophils 53 % (50-85); Total Cells Counted 100
[2021-06-05 06:30] LABS: Hypochromasia 1+; Microcytosis 1+
[2021-06-05] MEDS: ALBUTEROL/IPRATROPIUM 3 ML NEB RESP TX SCH ×2 (07:16→19:50)
[2021-06-05] MEDS: PANTOPRAZOLE 40 MG TABLET PO SCH (08:12)
[2021-06-05] MEDS: THYROID 60 MG TABLET PO SCH (08:13)
[2021-06-05] MEDS: carvediloL 6.25 MG TABLET PO SCH ×2 (08:13→17:43)
[2021-06-05] MEDS: SPIRONOLACTONE 25 MG TABLET PO SCH (08:14)
[2021-06-05] MEDS: MAGNESIUM CHLORIDE 64 MG TABLET PO SCH ×2 (08:14→21:41)
[2021-06-05] MEDS: CHOLECALCIFEROL 1,000 UNIT TABLET PO SCH (08:14)
[2021-06-05] MEDS: POTASSIUM CHLORIDE 20 MEQ TABLET PO SCH (08:15)
[2021-06-05] MEDS: FUROSEMIDE 20 MG TABLET PO SCH (08:15)
[2021-06-05] MEDS ORDERED: SODIUM CHLORIDE 0.9% 1,000 ML IV PRN (08:23)
[2021-06-05] MEDS ORDERED: PANTOPRAZOLE 40 MG TABLET PO SCH (09:00)
[2021-06-05] MEDS ORDERED: SODIUM CHLORIDE 0.9% 1,000 ML IV SCH (10:00)
[2021-06-05] MEDS: prednisoLONE ACETATE 1% OPH SUSP 5 ML BOTTLE RIGHT EYE SCH ×2 (10:29→21:42)
[2021-06-05] MEDS: MONTELUKAST 10 MG TABLET PO SCH (10:29)
[2021-06-05] MEDS: ursodioL 300 MG CAPSULE PO SCH ×2 (10:29→21:42)
[2021-06-05] MEDS ORDERED: ALBUMIN 25% 50 GM/200 ML VIAL IV ONE (11:00)
[2021-06-05] MEDS: FAMOTIDINE 20 MG TABLET PO SCH (21:41)
[2021-06-06 07:11] LABS: Hematocrit 26.4 VOL% (35.7-47.0)
[2021-06-06 07:13] LABS: Hemoglobin 9.1 GM/DL (12.0-16.0)
[2021-06-06] MEDS: ALBUTEROL/IPRATROPIUM 3 ML NEB RESP TX SCH ×2 (07:34→19:45)
[2021-06-06 08:13] LABS: Basophils % 0.7 % (0.0-0.8); Eosinophils # 0.1 10*3/uL (0.0-0.87); Eosinophils % 3.6 % (0.00-10.9); Hematocrit 26.5 VOL% (35.7-47.0); Immature Granulocytes % 0.7 %; Immature Granulocytes Absolute 0.01 #; Lymphocytes # 0.3 10*3/uL (1.4-4.0); Lymphocytes % 20.7 % (21.3-54.2); Mean Corpuscular HGB Conc 34.3 GM/DL (32-36); Mean Corpuscular Volume 98.9 FL (87-102); Mean Platelet Volume 10.6 FL (9.6-12.0); Monocytes % 21.4 % (1.7-12.7); Neutrophils % 52.9 % (38.7-73.9); Red Cell Distribution Width 18.4 % (9.3-17.3); White Blood Count 1.4 T/CUMM (4-12)
[2021-06-06 08:16] LABS: Red Blood Count 2.68 MC/CUMM (3.8-5.5)
[2021-06-06] MEDS: SPIRONOLACTONE 25 MG TABLET PO SCH (08:16)
[2021-06-06] MEDS: FAMOTIDINE 20 MG TABLET PO SCH ×2 (08:16→22:02)
[2021-06-06 08:17] LABS: Hemoglobin 9.1 GM/DL (12.0-16.0)
[2021-06-06] MEDS: MAGNESIUM CHLORIDE 64 MG TABLET PO SCH ×2 (08:17→22:02)
[2021-06-06] MEDS: THYROID 60 MG TABLET PO SCH (08:17)
[2021-06-06] MEDS: MONTELUKAST 10 MG TABLET PO SCH (08:17)
[2021-06-06] MEDS: CHOLECALCIFEROL 1,000 UNIT TABLET PO SCH (08:17)
[2021-06-06] MEDS: POTASSIUM CHLORIDE 20 MEQ TABLET PO SCH (08:17)
[2021-06-06] MEDS: carvediloL 6.25 MG TABLET PO SCH ×2 (08:17→17:00)
[2021-06-06] MEDS: ursodioL 300 MG CAPSULE PO SCH ×2 (08:17→22:02)
[2021-06-06] MEDS: FUROSEMIDE 20 MG TABLET PO SCH (08:17)
[2021-06-06] MEDS: prednisoLONE ACETATE 1% OPH SUSP 5 ML BOTTLE RIGHT EYE SCH ×2 (08:18→22:02)
[2021-06-06 08:19] LABS: Albumin 2.4 G/DL (3.4-5.0); Bilirubin,Total 3.1 MG/DL (0.20-1.00); Calcium 8.4 MG/DL (8.5-10.1); Osmolality,Calculated 257.1 MOS/KG (273-304); Potassium 4.4 MMOL/L (3.5-5.1)
[2021-06-06 08:19] LABS: Platelet Count 27 T/CUMM (130-400)
[2021-06-06 08:35] LABS: Eosinophils 1 % (0-10); Hypochromasia 1+; Lymphocytes 25 % (20-55); Microcytosis 1+; Platelet Estimate Decreased; Segmented Neutrophils 55 % (50-85); Total Cells Counted 100
[2021-06-06] MEDS: LACTULOSE 20 GM/30 ML UDCUP PO SCH ×4 (11:21→22:02)
[2021-06-06] MEDS: SODIUM CHLORIDE 0.9% 1,000 ML IV SCH (13:59)
[2021-06-07] MEDS: LACTULOSE 20 GM/30 ML UDCUP PO SCH ×4 (03:43→15:05)
[2021-06-07 06:48] LABS: Basophils % 0.5 % (0.0-0.8); Eosinophils # 0.1 10*3/uL (0.0-0.87); Eosinophils % 3.3 % (0.00-10.9); Hemoglobin 10.1 GM/DL (12.0-16.0); Immature Granulocytes % 0.5 %; Immature Granulocytes Absolute 0.01 #; Lymphocytes # 0.3 10*3/uL (1.4-4.0); Lymphocytes % 14.8 % (21.3-54.2); Mean Corpuscular HGB Conc 34.8 GM/DL (32-36); Mean Corpuscular Volume 99.7 FL (87-102); Mean Platelet Volume 10.1 FL (9.6-12.0); Monocytes % 22.5 % (1.7-12.7); Neutrophils % 58.4 % (38.7-73.9); Red Blood Count 2.91 MC/CUMM (3.8-5.5); Red Cell Distribution Width 18.6 % (9.3-17.3); White Blood Count 1.8 T/CUMM (4-12)
[2021-06-07 07:01] LABS: Platelet Count 28 T/CUMM (130-400)
[2021-06-07 07:14] LABS: Band Neutrophils 15 % (0-10); Eosinophils 3 % (0-10); Lymphocytes 18 % (20-55); Nucleated Red Blood Cells 19 (0-5); Platelet Estimate Decreased; Segmented Neutrophils 56 % (50-85); Total Cells Counted 100
[2021-06-07 07:15] LABS: Albumin 2.6 G/DL (3.4-5.0); Bilirubin,Total 3.7 MG/DL (0.20-1.00); Calcium 8.2 MG/DL (8.5-10.1); Osmolality,Calculated 260.8 MOS/KG (273-304); Potassium 4.4 MMOL/L (3.5-5.1); Total Protein 5.3 G/DL (6.4-8.2)
[2021-06-07 07:15] LABS: Hypochromasia 2+
[2021-06-07] MEDS: ALBUTEROL/IPRATROPIUM 3 ML NEB RESP TX SCH ×2 (07:20→19:58)
[2021-06-07] MEDS: SPIRONOLACTONE 25 MG TABLET PO SCH (09:00)
[2021-06-07] MEDS: FUROSEMIDE 20 MG TABLET PO SCH (09:00)
[2021-06-07] MEDS: POTASSIUM CHLORIDE 20 MEQ TABLET PO SCH (09:00)
[2021-06-07] MEDS: THYROID 60 MG TABLET PO SCH (09:01)
[2021-06-07] MEDS: CHOLECALCIFEROL 1,000 UNIT TABLET PO SCH (09:01)
[2021-06-07] MEDS: ursodioL 300 MG CAPSULE PO SCH ×2 (09:01→21:30)
[2021-06-07] MEDS: MAGNESIUM CHLORIDE 64 MG TABLET PO SCH ×2 (09:01→21:30)
[2021-06-07] MEDS: FAMOTIDINE 20 MG TABLET PO SCH ×2 (09:01→21:30)
[2021-06-07] MEDS: MONTELUKAST 10 MG TABLET PO SCH (09:01)
[2021-06-07] MEDS: carvediloL 6.25 MG TABLET PO SCH ×2 (09:01→16:33)
[2021-06-07] MEDS: prednisoLONE ACETATE 1% OPH SUSP 5 ML BOTTLE RIGHT EYE SCH ×2 (09:02→21:30)
[2021-06-07] MEDS ORDERED: LACTULOSE 20 GM/30 ML UDCUP PO SCH (21:00)
[2021-06-08 05:53] LABS: Basophils % 0.5 % (0.0-0.8); Eosinophils # 0.1 10*3/uL (0.0-0.87); Eosinophils % 4.8 % (0.00-10.9); Hemoglobin 9.1 GM/DL (12.0-16.0); Immature Granulocytes % 0.5 %; Immature Granulocytes Absolute 0.01 #; Lymphocytes # 0.3 10*3/uL (1.4-4.0); Lymphocytes % 17.6 % (21.3-54.2); Mean Corpuscular HGB Conc 33.7 GM/DL (32-36); Mean Platelet Volume 10.1 FL (9.6-12.0); Neutrophils % 53.6 % (38.7-73.9); Red Cell Distribution Width 18.6 % (9.3-17.3); White Blood Count 1.9 T/CUMM (4-12)
[2021-06-08 06:01] LABS: Platelet Count 28 T/CUMM (130-400)
[2021-06-08 06:17] LABS: Albumin 2.4 G/DL (3.4-5.0); Anisocytosis 1+; Bilirubin,Total 2.7 MG/DL (0.20-1.00); Burr Cells 1+; Calcium 8.1 MG/DL (8.5-10.1); Osmolality,Calculated 263.5 MOS/KG (273-304); Platelet Estimate Decreased; Potassium 4.4 MMOL/L (3.5-5.1); Total Protein 4.9 G/DL (6.4-8.2)
[2021-06-08 06:18] LABS: Macrocytosis 1+
[2021-06-08] MEDS: ALBUTEROL/IPRATROPIUM 3 ML NEB RESP TX SCH ×2 (07:09→20:16)
[2021-06-08] MEDS ORDERED: MAGNESIUM SULF RIDER 4 GM/100 ML PREMIX IV PRN (08:40)
[2021-06-08] MEDS ORDERED: MAGNESIUM SULF RIDER 2 GM/50 ML PREMIX IV PRN (08:40)
[2021-06-08] MEDS: MONTELUKAST 10 MG TABLET PO SCH (08:54)
[2021-06-08] MEDS: SPIRONOLACTONE 25 MG TABLET PO SCH (08:54)
[2021-06-08] MEDS: FUROSEMIDE 20 MG TABLET PO SCH (08:54)
[2021-06-08] MEDS: POTASSIUM CHLORIDE 20 MEQ TABLET PO SCH (08:54)
[2021-06-08] MEDS: MAGNESIUM CHLORIDE 64 MG TABLET PO SCH ×2 (08:54→20:33)
[2021-06-08] MEDS: LACTULOSE 20 GM/30 ML UDCUP PO SCH ×4 (08:54→20:33)
[2021-06-08] MEDS: CHOLECALCIFEROL 1,000 UNIT TABLET PO SCH (08:55)
[2021-06-08] MEDS: FAMOTIDINE 20 MG TABLET PO SCH ×2 (08:55→20:33)
[2021-06-08] MEDS: carvediloL 6.25 MG TABLET PO SCH ×2 (08:55→16:50)
[2021-06-08] MEDS: THYROID 60 MG TABLET PO SCH (08:55)
[2021-06-08] MEDS: ursodioL 300 MG CAPSULE PO SCH ×2 (08:55→20:33)
[2021-06-08] MEDS: prednisoLONE ACETATE 1% OPH SUSP 5 ML BOTTLE RIGHT EYE SCH ×2 (08:59→20:33)
[2021-06-09 05:34] LABS: Basophils % 0.5 % (0.0-0.8); Eosinophils # 0.1 10*3/uL (0.0-0.87); Eosinophils % 4.1 % (0.00-10.9); Hematocrit 26.9 VOL% (35.7-47.0); Hemoglobin 9.4 GM/DL (12.0-16.0); Immature Granulocytes % 0.5 %; Immature Granulocytes Absolute 0.01 #; Lymphocytes # 0.3 10*3/uL (1.4-4.0); Lymphocytes % 11.9 % (21.3-54.2); Mean Corpuscular HGB Conc 34.9 GM/DL (32-36); Mean Platelet Volume 9.4 FL (9.6-12.0); Monocytes % 24.7 % (1.7-12.7); Neutrophils % 58.3 % (38.7-73.9); Red Blood Count 2.69 MC/CUMM (3.8-5.5); Red Cell Distribution Width 18.3 % (9.3-17.3); White Blood Count 2.2 T/CUMM (4-12)
[2021-06-09 05:45] LABS: Albumin 2.5 G/DL (3.4-5.0); Bilirubin,Total 2.7 MG/DL (0.20-1.00); Calcium 8.5 MG/DL (8.5-10.1); Osmolality,Calculated 263.8 MOS/KG (273-304); Platelet Count 32 T/CUMM (130-400); Potassium 4.6 MMOL/L (3.5-5.1); Total Protein 5.1 G/DL (6.4-8.2)
[2021-06-09 06:03] LABS: Platelet Estimate Decreased
[2021-06-09 06:04] LABS: Anisocytosis 2+; Burr Cells Few; Macrocytosis 1+
[2021-06-09] MEDS: ALBUTEROL/IPRATROPIUM 3 ML NEB RESP TX SCH ×2 (07:00→20:12)
[2021-06-09] MEDS: LACTULOSE 20 GM/30 ML UDCUP PO SCH ×3 (08:52→20:27)
[2021-06-09] MEDS: THYROID 60 MG TABLET PO SCH (08:52)
[2021-06-09] MEDS: carvediloL 6.25 MG TABLET PO SCH ×2 (08:53→16:17)
[2021-06-09] MEDS: ursodioL 300 MG CAPSULE PO SCH ×2 (08:53→20:26)
[2021-06-09] MEDS: FUROSEMIDE 20 MG TABLET PO SCH (08:53)
[2021-06-09] MEDS: POTASSIUM CHLORIDE 20 MEQ TABLET PO SCH (08:53)
[2021-06-09] MEDS: MAGNESIUM CHLORIDE 64 MG TABLET PO SCH ×2 (08:53→20:27)
[2021-06-09] MEDS: SPIRONOLACTONE 25 MG TABLET PO SCH (08:53)
[2021-06-09] MEDS: MONTELUKAST 10 MG TABLET PO SCH (08:53)
[2021-06-09] MEDS: FAMOTIDINE 20 MG TABLET PO SCH ×2 (08:53→20:27)
[2021-06-09] MEDS: CHOLECALCIFEROL 1,000 UNIT TABLET PO SCH (08:53)
[2021-06-09] MEDS: prednisoLONE ACETATE 1% OPH SUSP 5 ML BOTTLE RIGHT EYE SCH ×2 (08:58→20:26)
[2021-06-10 05:55] LABS: Basophils % 0.5 % (0.0-0.8); Eosinophils # 0.1 10*3/uL (0.0-0.87); Eosinophils % 4.3 % (0.00-10.9); Hematocrit 26.7 VOL% (35.7-47.0); Immature Granulocytes Absolute 0.02 #; Lymphocytes # 0.3 10*3/uL (1.4-4.0); Lymphocytes % 12.5 % (21.3-54.2); Mean Corpuscular HGB Conc 33.7 GM/DL (32-36); Mean Corpuscular Volume 103.5 FL (87-102); Mean Platelet Volume 9.6 FL (9.6-12.0); Monocytes % 21.6 % (1.7-12.7); Neutrophils % 60.1 % (38.7-73.9); Red Blood Count 2.58 MC/CUMM (3.8-5.5); Red Cell Distribution Width 18.2 % (9.3-17.3); White Blood Count 2.1 T/CUMM (4-12)
[2021-06-10 06:20] LABS: Platelet Count 25 T/CUMM (130-400)
[2021-06-10 06:22] LABS: Albumin 2.3 G/DL (3.4-5.0); Bilirubin,Total 2.4 MG/DL (0.20-1.00); Calcium 8.2 MG/DL (8.5-10.1); Osmolality,Calculated 269.4 MOS/KG (273-304); Potassium 4.6 MMOL/L (3.5-5.1)
[2021-06-10 06:24] LABS: Platelet Estimate Decreased
[2021-06-10 06:25] LABS: Anisocytosis 1+; Burr Cells Few; Macrocytosis 1+
[2021-06-10] MEDS: ALBUTEROL/IPRATROPIUM 3 ML NEB RESP TX SCH ×2 (07:25→20:22)
[2021-06-10] MEDS: THYROID 60 MG TABLET PO SCH (09:03)
[2021-06-10] MEDS: FAMOTIDINE 20 MG TABLET PO SCH ×2 (09:04→21:30)
[2021-06-10] MEDS: SPIRONOLACTONE 25 MG TABLET PO SCH (09:04)
[2021-06-10] MEDS: CHOLECALCIFEROL 1,000 UNIT TABLET PO SCH (09:04)
[2021-06-10] MEDS: LACTULOSE 20 GM/30 ML UDCUP PO SCH ×3 (09:04→21:27)
[2021-06-10] MEDS: MONTELUKAST 10 MG TABLET PO SCH (09:04)
[2021-06-10] MEDS: MAGNESIUM CHLORIDE 64 MG TABLET PO SCH ×2 (09:05→21:27)
[2021-06-10] MEDS: FUROSEMIDE 20 MG TABLET PO SCH (09:05)
[2021-06-10] MEDS: carvediloL 6.25 MG TABLET PO SCH ×2 (09:05→16:14)
[2021-06-10] MEDS: POTASSIUM CHLORIDE 20 MEQ TABLET PO SCH (09:05)
[2021-06-10] MEDS: prednisoLONE ACETATE 1% OPH SUSP 5 ML BOTTLE RIGHT EYE SCH ×2 (09:06→21:27)
[2021-06-10] MEDS: ursodioL 300 MG CAPSULE PO SCH ×2 (09:08→21:27)
[2021-06-11 05:41] LABS: Basophils % 0.7 % (0.0-0.8); Eosinophils # 0.1 10*3/uL (0.0-0.87); Eosinophils % 4.6 % (0.00-10.9); Hematocrit 26.6 VOL% (35.7-47.0); Hemoglobin 8.8 GM/DL (12.0-16.0); Immature Granulocytes % 0.7 %; Immature Granulocytes Absolute 0.01 #; Lymphocytes # 0.3 10*3/uL (1.4-4.0); Lymphocytes % 18.3 % (21.3-54.2); Mean Corpuscular HGB Conc 33.1 GM/DL (32-36); Mean Corpuscular Volume 102.7 FL (87-102); Mean Platelet Volume 10.1 FL (9.6-12.0); Monocytes % 20.9 % (1.7-12.7); Neutrophils % 54.8 % (38.7-73.9); Red Blood Count 2.59 MC/CUMM (3.8-5.5); Red Cell Distribution Width 18.2 % (9.3-17.3); White Blood Count 1.5 T/CUMM (4-12)
[2021-06-11 06:04] LABS: Albumin 2.4 G/DL (3.4-5.0); Bilirubin,Total 2.3 MG/DL (0.20-1.00); Calcium 8.3 MG/DL (8.5-10.1); Osmolality,Calculated 261.9 MOS/KG (273-304); Potassium 4.8 MMOL/L (3.5-5.1)
[2021-06-11 06:05] LABS: Platelet Count 24 T/CUMM (130-400)
[2021-06-11 06:20] LABS: Hypochromasia Slight
[2021-06-11 06:21] LABS: Macrocytosis 1+; Ovalocytes Slight; Platelet Estimate Decreased
[2021-06-11] MEDS: ALBUTEROL/IPRATROPIUM 3 ML NEB RESP TX SCH (07:30)
[2021-06-11] MEDS: LACTULOSE 20 GM/30 ML UDCUP PO SCH (08:59)
[2021-06-11] MEDS: carvediloL 6.25 MG TABLET PO SCH (09:00)
[2021-06-11] MEDS: ursodioL 300 MG CAPSULE PO SCH (09:00)
[2021-06-11] MEDS: MAGNESIUM CHLORIDE 64 MG TABLET PO SCH (09:00)
[2021-06-11] MEDS ORDERED: SODIUM BICARBONATE 650 MG TABLET PO SCH (09:00)
[2021-06-11] MEDS: MONTELUKAST 10 MG TABLET PO SCH (09:00)
[2021-06-11] MEDS: THYROID 60 MG TABLET PO SCH (09:00)
[2021-06-11] MEDS: CHOLECALCIFEROL 1,000 UNIT TABLET PO SCH (09:00)
[2021-06-11] MEDS: FUROSEMIDE 20 MG TABLET PO SCH (09:01)
[2021-06-11] MEDS: SPIRONOLACTONE 25 MG TABLET PO SCH (09:01)
[2021-06-11] MEDS: FAMOTIDINE 20 MG TABLET PO SCH (09:01)
[2021-06-11] MEDS: prednisoLONE ACETATE 1% OPH SUSP 5 ML BOTTLE RIGHT EYE SCH (09:01)
[2021-06-11] MEDS: POTASSIUM CHLORIDE 20 MEQ TABLET PO SCH (09:01)
[2021-06-11 11:38] VITALS: BP 117/56
== END 2021-06-11 12:36 | disposition home health service (06) | DRG 808 ==
LOC: SUATTDRO → N.ED 09:01 → N.EDINP 13:36 → N.5E 19:00
PROVIDERS: ADMIT Internal Medicine; ATTEND Internal Medicine

== ENCOUNTER 2022-02-06 10:19 | Inpatient (IN) ==
[2022-02-06 13:04] LABS: Basophils % 0.4 % (0.0-0.8); Eosinophils % 1.1 % (0.00-10.9); Hematocrit 23.1 VOL% (35.7-47.0); Hemoglobin 7.8 GM/DL (12.0-16.0); Immature Granulocytes % 1.1 %; Immature Granulocytes Absolute 0.03 #; Lymphocytes # 0.4 10*3/uL (1.4-4.0); Lymphocytes % 14.1 % (21.3-54.2); Mean Corpuscular HGB Conc 33.8 GM/DL (32-36); Mean Platelet Volume 10.3 FL (9.6-12.0); Monocytes # 0.4 10*3/uL (0.11-0.8); Monocytes % 15.5 % (1.7-12.7); Neutrophils % 67.8 % (38.7-73.9); Platelet Count 62 T/CUMM (130-400); Red Blood Count 2.18 MC/CUMM (3.8-5.5); Red Cell Distribution Width 16.6 % (9.3-17.3); White Blood Count 2.8 T/CUMM (4-12)
[2022-02-06 13:19] LABS: Albumin 2.3 G/DL (3.4-5.0); Bilirubin,Total 2.5 MG/DL (0.20-1.00); Osmolality,Calculated 264.8 MOS/KG (273-304); Potassium 3.8 MMOL/L (3.5-5.1); Total Protein 5.3 G/DL (6.4-8.2)
[2022-02-06 13:22] LABS: Anisocytosis 1+; Macrocytosis 1+; Platelet Estimate Decreased
[2022-02-06] MEDS ORDERED: VANCOMYCIN INJ 1,000 MG in SODIUM CHLORIDE 0.9% 250 ML IV STA ×2 (13:47→14:20)
[2022-02-06] MEDS ORDERED: ONDANSETRON 4 MG/2 ML VIAL IV PRN (14:28)
[2022-02-06] MEDS ORDERED: MORPHINE 2 MG/1 ML SYRINGE IV PRN (14:28)
[2022-02-06] MEDS ORDERED: GLUCAGON 1 MG VIAL IM PRN (14:28)
[2022-02-06] MEDS ORDERED: DEXTROSE 10% 250 ML BAG IV PRN (14:34)
[2022-02-06] MEDS: VANCOMYCIN INJ 1,000 MG in SODIUM CHLORIDE 0.9% 250 ML IV SCH (17:03)
[2022-02-06] MEDS: cefTRIAXone 1,000 MG in SODIUM CHLORIDE 0.9% 100 ML IV SCH (17:04)
[2022-02-06] MEDS: LACTULOSE 20 GM/30 ML UDCUP PO SCH ×2 (17:05→21:11)
[2022-02-06] MEDS ORDERED: ENOXAPARIN 30 MG/0.3 ML SYRINGE SUBCUT SCH (21:00)
[2022-02-07] MEDS: THYROID 60 MG TABLET PO SCH (05:32)
[2022-02-07 05:40] LABS: Basophils % 0.7 % (0.0-0.8); Eosinophils % 1.4 % (0.00-10.9); Hematocrit 21.7 VOL% (35.7-47.0); Hemoglobin 7.3 GM/DL (12.0-16.0); Immature Granulocytes % 0.7 %; Immature Granulocytes Absolute 0.02 #; Lymphocytes # 0.4 10*3/uL (1.4-4.0); Lymphocytes % 13.8 % (21.3-54.2); Mean Corpuscular HGB Conc 33.6 GM/DL (32-36); Mean Corpuscular Volume 106.4 FL (87-102); Monocytes # 0.5 10*3/uL (0.11-0.8); Monocytes % 18.3 % (1.7-12.7); Neutrophils % 65.1 % (38.7-73.9); Platelet Count 63 T/CUMM (130-400); Red Blood Count 2.04 MC/CUMM (3.8-5.5); Red Cell Distribution Width 16.4 % (9.3-17.3); White Blood Count 2.9 T/CUMM (4-12)
[2022-02-07 05:57] LABS: Albumin 2.1 G/DL (3.4-5.0); Bilirubin,Total 2.5 MG/DL (0.20-1.00); Calcium 8.1 MG/DL (8.5-10.1); Osmolality,Calculated 268.4 MOS/KG (273-304); Potassium 3.7 MMOL/L (3.5-5.1); Total Protein 5.4 G/DL (6.4-8.2)
[2022-02-07 06:25] LABS: Lymphocytes 9 % (20-55); Total Cells Counted 100
[2022-02-07 06:26] LABS: Platelet Estimate Decreased
[2022-02-07] MEDS: LACTULOSE 20 GM/30 ML UDCUP PO SCH ×3 (08:27→22:31)
[2022-02-07] MEDS: PANTOPRAZOLE 40 MG TABLET PO SCH (08:27)
[2022-02-07] MEDS ORDERED: SODIUM CHLORIDE 0.9% 1,000 ML IV PRN (11:04)
[2022-02-07] MEDS: DOPTELET PO SCH (17:38)
[2022-02-07] MEDS: VANCOMYCIN INJ 1,000 MG in SODIUM CHLORIDE 0.9% 250 ML IV SCH (17:52)
[2022-02-07 19:22] LABS: Hematocrit 25.6 VOL% (35.7-47.0); Hemoglobin 8.5 GM/DL (12.0-16.0)
[2022-02-07] MEDS: DOXEPIN 25 MG CAPSULE PO SCH (22:21)
[2022-02-07] MEDS: cefTRIAXone 1,000 MG in SODIUM CHLORIDE 0.9% 100 ML IV SCH (22:22)
[2022-02-08 04:53] LABS: Basophils % 0.6 % (0.0-0.8); Eosinophils % 2.2 % (0.00-10.9); Hematocrit 22.6 VOL% (35.7-47.0); Hemoglobin 7.7 GM/DL (12.0-16.0); Immature Granulocytes % 0.6 %; Immature Granulocytes Absolute 0.01 #; Lymphocytes # 0.3 10*3/uL (1.4-4.0); Lymphocytes % 17.2 % (21.3-54.2); Mean Corpuscular HGB Conc 34.1 GM/DL (32-36); Mean Corpuscular Volume 102.3 FL (87-102); Mean Platelet Volume 10.6 FL (9.6-12.0); Monocytes # 0.4 10*3/uL (0.11-0.8); Monocytes % 19.4 % (1.7-12.7); Platelet Count 49 T/CUMM (130-400); Red Blood Count 2.21 MC/CUMM (3.8-5.5); Red Cell Distribution Width 18.9 % (9.3-17.3); White Blood Count 1.8 T/CUMM (4-12)
[2022-02-08 05:16] LABS: Calcium 7.7 MG/DL (8.5-10.1); Osmolality,Calculated 268.4 MOS/KG (273-304); Potassium 3.4 MMOL/L (3.5-5.1); Total Protein 4.8 G/DL (6.4-8.2)
[2022-02-08 05:19] LABS: Eosinophils 1 % (0-10); Hypochromia Slight; Lymphocytes 17 % (20-55); Platelet Estimate Decreased; Total Cells Counted 100
[2022-02-08] MEDS: THYROID 60 MG TABLET PO SCH (05:24)
[2022-02-08] MEDS: PANTOPRAZOLE 40 MG TABLET PO SCH (09:11)
[2022-02-08] MEDS: LACTULOSE 20 GM/30 ML UDCUP PO SCH ×4 (09:11→21:05)
[2022-02-08] MEDS ORDERED: POTASSIUM CHLORIDE 20 MEQ TABLET PO ONE (09:20)
[2022-02-08] MEDS: CHOLECALCIFEROL 1,000 UNIT TABLET PO SCH (11:02)
[2022-02-08] MEDS: carvediloL 6.25 MG TABLET PO SCH ×2 (11:02→21:02)
[2022-02-08] MEDS: DOPTELET PO SCH (17:59)
[2022-02-08 18:35] LABS: Hematocrit 28.5 VOL% (35.7-47.0); Hemoglobin 9.4 GM/DL (12.0-16.0)
[2022-02-08] MEDS ORDERED: MONTELUKAST 10 MG TABLET PO SCH (19:00)
[2022-02-08] MEDS: DOXEPIN 25 MG CAPSULE PO SCH (21:02)
[2022-02-08] MEDS: CEFUROXIME 500 MG TABLET PO SCH (21:02)
[2022-02-08] MEDS: URSODIOL 250 MG PO SCH (21:04)
[2022-02-09 05:25] LABS: Basophils % 0.4 % (0.0-0.8); Eosinophils % 1.7 % (0.00-10.9); Hematocrit 25.3 VOL% (35.7-47.0); Hemoglobin 8.5 GM/DL (12.0-16.0); Immature Granulocytes % 0.9 %; Immature Granulocytes Absolute 0.02 #; Lymphocytes # 0.3 10*3/uL (1.4-4.0); Lymphocytes % 14.6 % (21.3-54.2); Mean Corpuscular HGB Conc 33.6 GM/DL (32-36); Mean Corpuscular Volume 100.8 FL (87-102); Mean Platelet Volume 10.6 FL (9.6-12.0); Monocytes # 0.5 10*3/uL (0.11-0.8); Monocytes % 20.6 % (1.7-12.7); Neutrophils % 61.8 % (38.7-73.9); Red Blood Count 2.51 MC/CUMM (3.8-5.5); White Blood Count 2.3 T/CUMM (4-12)
[2022-02-09 05:30] LABS: Platelet Count 50 T/CUMM (130-400)
[2022-02-09 05:45] LABS: Calcium 7.7 MG/DL (8.5-10.1); Osmolality,Calculated 269.5 MOS/KG (273-304); Potassium 3.7 MMOL/L (3.5-5.1)
[2022-02-09 05:53] LABS: Lymphocytes 9 % (20-55); Platelet Estimate Decreased; Total Cells Counted 100
[2022-02-09] MEDS: THYROID 60 MG TABLET PO SCH (06:23)
[2022-02-09 08:45] VITALS: BP 84/53
[2022-02-09] MEDS: CHOLECALCIFEROL 1,000 UNIT TABLET PO SCH (09:05)
[2022-02-09] MEDS: PANTOPRAZOLE 40 MG TABLET PO SCH (09:05)
[2022-02-09] MEDS: carvediloL 6.25 MG TABLET PO SCH (09:05)
[2022-02-09] MEDS: CEFUROXIME 500 MG TABLET PO SCH (09:05)
[2022-02-09] MEDS: URSODIOL 250 MG PO SCH (09:05)
[2022-02-09] MEDS: LACTULOSE 20 GM/30 ML UDCUP PO SCH (09:05)
[2022-02-09] MEDS ORDERED: SODIUM CHLORIDE 0.9% 250 ML IV ONE (10:15)
== END 2022-02-09 12:30 | disposition home or self-care (01) | DRG 602 ==
LOC: N.ED 10:19 → N.EDINP 14:28 → SUATTDRO 14:28 → N.5E 15:53
PROVIDERS: ADMIT Family Medicine; ATTEND Internal Medicine

== ENCOUNTER 2022-02-18 12:57 | Observation (INO) ==
[2022-02-18 15:41] LABS: Basophils % 0.5 % (0.0-0.8); Eosinophils # 0.1 10*3/uL (0.0-0.87); Hematocrit 31.3 VOL% (35.7-47.0); Hemoglobin 10.4 GM/DL (12.0-16.0); Immature Granulocytes % 0.8 %; Immature Granulocytes Absolute 0.05 #; Lymphocytes # 0.5 10*3/uL (1.4-4.0); Lymphocytes % 7.5 % (21.3-54.2); Mean Corpuscular HGB Conc 33.2 GM/DL (32-36); Mean Corpuscular Volume 102.6 FL (87-102); Mean Platelet Volume 10.3 FL (9.6-12.0); Monocytes # 0.9 10*3/uL (0.11-0.8); Monocytes % 13.6 % (1.7-12.7); Neutrophils % 76.6 % (38.7-73.9); Platelet Count 113 T/CUMM (130-400); Red Blood Count 3.05 MC/CUMM (3.8-5.5); White Blood Count 6.3 T/CUMM (4-12)
[2022-02-18 15:57] LABS: Lactic Acid 0.8 MMOL/L (0.4-2.0)
[2022-02-18 15:58] LABS: Albumin 2.5 G/DL (3.4-5.0); Bilirubin,Total 2.8 MG/DL (0.20-1.00); Calcium 9.1 MG/DL (8.5-10.1); Osmolality,Calculated 261.2 MOS/KG (273-304); Total Protein 6.2 G/DL (6.4-8.2)
[2022-02-18] MEDS ORDERED: SODIUM CHLORIDE 0.9% 500 ML IV STA (16:09)
[2022-02-18] MEDS ORDERED: GLUCAGON 1 MG VIAL IM PRN (17:35)
[2022-02-18] MEDS ORDERED: ONDANSETRON 4 MG/2 ML VIAL IV PRN (17:35)
[2022-02-18] MEDS ORDERED: DEXTROSE 10% 250 ML BAG IV PRN (17:41)
[2022-02-18] MEDS ORDERED: FUROSEMIDE 40 MG/4 ML VIAL IV STA (17:57)
[2022-02-18] MEDS ORDERED: DOPTELET PO SCH (18:00)
[2022-02-18] MEDS: SODIUM POLYSTYRENE SULFATE 15 GM/60 ML BOTTLE PO SCH ×2 (20:08→23:16)
[2022-02-18] MEDS: MONTELUKAST 10 MG TABLET PO SCH (20:08)
[2022-02-18 20:10] LABS: INR 1.2; PT Patient Result 13.1 SECS (10.1-12.1)
[2022-02-18] MEDS ORDERED: MAGNESIUM CHLORIDE 64 MG TABLET PO SCH (21:00)
[2022-02-18] MEDS ORDERED: SPIRONOLACTONE 50 MG TABLET PO SCH (21:00)
[2022-02-18] MEDS: carvediloL 6.25 MG TABLET PO SCH (21:11)
[2022-02-18] MEDS: prednisoLONE ACETATE 1% OPH SUSP 5 ML BOTTLE RIGHT EYE SCH (21:11)
[2022-02-18] MEDS: PANTOPRAZOLE 40 MG TABLET PO SCH (21:11)
[2022-02-18] MEDS: URSODIOL 250 MG PO SCH (21:12)
[2022-02-19] MEDS: THYROID 60 MG TABLET PO SCH (05:15)
[2022-02-19 05:17] LABS: Basophils % 0.3 % (0.0-0.8); Eosinophils # 0.1 10*3/uL (0.0-0.87); Eosinophils % 1.9 % (0.00-10.9); Hematocrit 26.8 VOL% (35.7-47.0); Immature Granulocytes % 0.8 %; Immature Granulocytes Absolute 0.03 #; Lymphocytes # 0.4 10*3/uL (1.4-4.0); Lymphocytes % 11.9 % (21.3-54.2); Mean Corpuscular HGB Conc 33.6 GM/DL (32-36); Mean Corpuscular Volume 101.1 FL (87-102); Mean Platelet Volume 10.5 FL (9.6-12.0); Monocytes # 0.6 10*3/uL (0.11-0.8); Monocytes % 17.2 % (1.7-12.7); Neutrophils % 67.9 % (38.7-73.9); Platelet Count 64 T/CUMM (130-400); Red Blood Count 2.65 MC/CUMM (3.8-5.5); Red Cell Distribution Width 17.7 % (9.3-17.3); White Blood Count 3.6 T/CUMM (4-12)
[2022-02-19 05:26] LABS: INR 1.2; PT Patient Result 13.5 SECS (10.1-12.1)
[2022-02-19 05:48] LABS: Albumin 2.2 G/DL (3.4-5.0); Bilirubin,Total 2.5 MG/DL (0.20-1.00); Osmolality,Calculated 264.9 MOS/KG (273-304); Potassium 5.7 MMOL/L (3.5-5.1); Total Protein 5.1 G/DL (6.4-8.2)
[2022-02-19 05:53] LABS: Eosinophils 1 % (0-10); Lymphocytes 10 % (20-55); Platelet Estimate Decreased; Total Cells Counted 100
[2022-02-19] MEDS ORDERED: SODIUM POLYSTYRENE SULFATE 15 GM/60 ML BOTTLE PO STA (08:00)
[2022-02-19] MEDS ORDERED: PNEUMOCOCCAL VACCINE (13 VALENT) 0.5 ML SYRINGE IM ONE (09:00)
[2022-02-19] MEDS: CHOLECALCIFEROL 1,000 UNIT TABLET PO SCH (09:42)
[2022-02-19] MEDS: PANTOPRAZOLE 40 MG TABLET PO SCH ×2 (09:43→20:28)
[2022-02-19] MEDS: carvediloL 6.25 MG TABLET PO SCH ×2 (09:43→20:28)
[2022-02-19] MEDS: URSODIOL 250 MG PO SCH ×2 (09:44→20:29)
[2022-02-19] MEDS: FUROSEMIDE 40 MG TABLET PO SCH (09:49)
[2022-02-19] MEDS: prednisoLONE ACETATE 1% OPH SUSP 5 ML BOTTLE RIGHT EYE SCH ×2 (10:10→20:29)
[2022-02-19] MEDS: LACTULOSE 20 GM/30 ML UDCUP PO SCH ×2 (14:19→20:28)
[2022-02-19] MEDS: MONTELUKAST 10 MG TABLET PO SCH (20:28)
[2022-02-20] MEDS: THYROID 60 MG TABLET PO SCH (05:28)
[2022-02-20 08:12] VITALS: BP 105/36
[2022-02-20 08:49] LABS: Basophils % 0.7 % (0.0-0.8); Eosinophils # 0.1 10*3/uL (0.0-0.87); Eosinophils % 2.1 % (0.00-10.9); Hematocrit 26.1 VOL% (35.7-47.0); Hemoglobin 8.7 GM/DL (12.0-16.0); Immature Granulocytes % 0.7 %; Immature Granulocytes Absolute 0.02 #; Lymphocytes # 0.3 10*3/uL (1.4-4.0); Lymphocytes % 11.9 % (21.3-54.2); Mean Corpuscular HGB Conc 33.3 GM/DL (32-36); Mean Platelet Volume 10.2 FL (9.6-12.0); Monocytes # 0.5 10*3/uL (0.11-0.8); Monocytes % 18.9 % (1.7-12.7); Neutrophils % 65.7 % (38.7-73.9); Platelet Count 68 T/CUMM (130-400); Red Blood Count 2.56 MC/CUMM (3.8-5.5); Red Cell Distribution Width 18.1 % (9.3-17.3); White Blood Count 2.9 T/CUMM (4-12)
[2022-02-20] MEDS: LACTULOSE 20 GM/30 ML UDCUP PO SCH (08:52)
[2022-02-20] MEDS: CHOLECALCIFEROL 1,000 UNIT TABLET PO SCH (08:52)
[2022-02-20] MEDS: carvediloL 6.25 MG TABLET PO SCH (08:53)
[2022-02-20] MEDS: PANTOPRAZOLE 40 MG TABLET PO SCH (08:53)
[2022-02-20] MEDS: FUROSEMIDE 40 MG TABLET PO SCH (08:53)
[2022-02-20] MEDS: prednisoLONE ACETATE 1% OPH SUSP 5 ML BOTTLE RIGHT EYE SCH (08:53)
[2022-02-20 09:04] LABS: Bilirubin,Total 1.7 MG/DL (0.20-1.00); Calcium 8.4 MG/DL (8.5-10.1); Osmolality,Calculated 273.5 MOS/KG (273-304); Potassium 3.9 MMOL/L (3.5-5.1); Total Protein 5.1 G/DL (6.4-8.2)
[2022-02-20 09:07] LABS: Eosinophils 3 % (0-10); Lymphocytes 7 % (20-55); Platelet Estimate Decreased; Total Cells Counted 100
[2022-02-20] MEDS: URSODIOL 250 MG PO SCH (10:34)
== END 2022-02-20 12:00 | disposition home or self-care (01) ==
LOC: N.EDINP 12:57 → N.ED 12:57 → SUATTDRO 17:35 → N.5E 18:56 → N.TELES 19:49
PROVIDERS: ADMIT Family Medicine; ATTEND Internal Medicine